=== PATIENT | male | born 1955 | race Caucasian/White ===

== ENCOUNTER 2021-08-17 05:48 | Observation (INO) | payer OTHER, SELFPAY ==
--- NOTE | ~2021-08-17 | US_ITS ---
EXAMINATION: US ABDOMEN LIMITED CLINICAL INFORMATION: Right upper quadrant pain. Elevated liver function tests.. COMPARISON: None TECHNIQUE: Real-time imaging of the right upper quadrant abdominal viscera. FINDINGS: PANCREAS: Normal. LIVER: Liver has normal size, contour and echotexture. No focal hepatic lesion or intrahepatic bile duct dilatation. GALLBLADDER: There is gallbladder hydrops. The gallbladder is distended to 6 cm transverse diameter. There appear to be calculi within the region of the gallbladder neck (image 30 of 59). No gallbladder wall thickening or pericholecystic fluid. The learning technologist reports that the patient had tenderness over the region of the gallbladder. COMMON BILE DUCT: CBD is not specifically visualized. No dilated ducts are seen. RIGHT KIDNEY: Normal. No hydronephrosis. No renal calculi or focal parenchymal lesions. The kidney measures 11.6 cm in maximum dimension. FREE FLUID: None. US/US abdomen limited IMPRESSION: Abnormal. Gallbladder hydrops is present, and there appear to be stones in the region of the gallbladder neck. No gallbladder wall edema or pericholecystic fluid. There is reportedly pain over the region of the gallbladder, and pain could be secondary to biliary colic or early onset cholecystitis.
--- NOTE | ~2021-08-17 | MR_ITS ---
EXAMINATION: MR ABDOMEN WITHOUT CONTRAST CLINICAL INFORMATION: Abdominal pain and elevated liver function tests COMPARISON: None. TECHNIQUE: MR abdomen is performed without gadolinium contrast. MRCP sequences were also performed. FINDINGS: LUNG BASES: The visualized lung bases are unremarkable. LIVER, GALLBLADDER, AND BILIARY TREE: The liver is normal in size, smooth in contour, and normal in signal. No intrahepatic or extrahepatic biliary ductal dilatation is present. The common bile duct measures 0.4 cm. No common bile duct stone is seen. The gallbladder is enlarged. There are gallstones in the neck of the gallbladder. There is gallbladder wall thickening and edema. There is a small amount of pericholecystic fluid. Appearance is concerning for acute cholecystitis. PANCREAS: Unremarkable. Main pancreatic duct is normal in caliber. SPLEEN: The spleen is slightly enlarged and measures 13.8 cm in length. ADRENAL GLANDS: Unremarkable. KIDNEYS AND URETERS: The kidneys are normal in size and shape. No hydronephrosis. There are bilateral renal peripelvic cysts. GASTROINTESTINAL TRACT: No bowel obstruction. No ascites or fluid collection. ABDOMINAL WALL: No significant hernia is appreciated. LYMPH NODES: No lymphadenopathy. VASCULAR: Unremarkable. OSSEOUS STRUCTURES: Marrow signal normal. There are degenerative changes of the spine. MR/MR abdomen wo con IMPRESSION: Enlarged gallbladder and gallstones in the neck of the gallbladder. Gallbladder wall is slightly thickened and edematous and there is trace pericholecystic fluid. Appearance is concerning for acute cholecystitis. Normal caliber intra and extrahepatic bile ducts. No common bile duct stone seen. Slightly enlarged spleen. Bilateral renal peripelvic cysts.
--- NOTE | ~2021-08-17 | US_ITS ---
EXAMINATION: US RETROPERITONEAL LIMITED (RENAL ONLY) CLINICAL INFORMATION: Follow-up lesion left kidney. COMPARISON: Previous limited abdominal ultrasound, abdominal and pelvic CT scan and abdominal MR with MRCP from earlier this month TECHNIQUE: Grayscale and color imaging of the left kidney FINDINGS: LEFT KIDNEY: 2.5 x 5.8 x 6.1 cm (SAG x AP x TRV). The kidney is normal in size, contour, and echogenicity. Renal cortical thickness is normal. There are 2 cortical cysts seen in the lower pole measuring 7 mm and 1.6 x 1.4 x 1 cm. There are peripelvic cysts. No renal mass or hydronephrosis is seen. US/US renal BI IMPRESSION: Left renal cortical and peripelvic cysts.
--- NOTE | ~2021-08-17 | CT_ITS ---
EXAMINATION: CT ABDOMEN AND PELVIS WITHOUT CONTRAST CLINICAL INFORMATION: Status post recent colonoscopy. Abdominal pain. COMPARISON: Ultrasound abdomen 08/17/2021 TECHNIQUE: Multidetector volumetric imaging was performed from the superior aspect of the liver through the pubic symphysis. Sagittal and coronal reformatted images were obtained on the technologist's workstation. This CT examination was performed using dose optimization techniques as appropriate, variously including the following: *Automated exposure control *Adjustment of mA and/or kV according to patient size (this includes techniques or standardized protocols for targeted exams where dose is matched to indication/reason for exam; i.e. extremities or head) *Use of iterative reconstruction technique DLP: 864 mGy-cm FINDINGS: LUNG BASES: There is bibasilar scarring or atelectasis. The heart size is normal. LIVER, GALLBLADDER, AND BILIARY TREE: The liver is normal in size, shape, and attenuation. No focal hepatic lesion or biliary ductal dilatation is present. The gallbladder is distended with multiple radiopaque calculi. There is no gallbladder wall thickening or pericholecystic fluid collection. PANCREAS: Unremarkable. SPLEEN: Unremarkable. ADRENAL GLANDS: Unremarkable. KIDNEYS AND URETERS: The kidneys are normal size and shape. There is mild prominent pelvicalyceal system but no obstructive process. There are several low-density lesions in the mid and lower pole left kidney measuring cyst on axial image 39 and 3 and coronal image 68/6. There is an exophytic isointense lesion in the lower pole measuring 5 mm image 68/6, not a simple cysts. There is no perinephric stranding. BLADDER: There is mild posterior bladder wall thickening. No radiopaque bladder calculi seen. GASTROINTESTINAL TRACT: There is scattered stool and gas seen throughout the colon without any significant distention. The small bowel loops are normal caliber. Appendix is normal caliber. The stomach is nondistended. There is no free air or free fluid. ABDOMINAL WALL: No significant hernia is appreciated. LYMPH NODES: Normal. VASCULAR: Unremarkable. PELVIC VISCERA: The prostate gland is moderately enlarged extending to the base of bladder OSSEOUS STRUCTURES: No lytic or sclerotic process seen. There is mild degenerative disc changes L5-S1 and L2-L3 disc levels with mild ventral spondylosis. There is a total right hip prosthesis with prosthetic artifact in the right lower hemipelvis. CT/CT abdomen pelvis wo con IMPRESSION: Cholelithiasis without wall thickening. No intrahepatic ductal dilatation. Moderate constipation. Bilateral prominent pelvicalyceal system but no obstructive etiology seen. There is no other hydroureter. There are left lower pole and mid pole renal cysts cysts. There is an exophytic small fibroid lesion lower pole left kidney which is indeterminate. Fleischner guidelines were followed.
[2021-08-17 05:52] VITALS: BP 116/76; PULSE 69; RESP 20; TEMP 36.2; O2SAT 97; BMI 31.4
[2021-08-17 06:14] LABS: MANUAL DIFF FLAG NO
[2021-08-17 06:19] LABS: Basophils Percent Auto 0.3 % (0-2); Eosinophils Absolute Auto 0.1 X10*3/uL (0.0-0.4); Eosinophils Percent Auto 0.9 % (0-4); Hematocrit 41.5 % (42.0-52.0); Hemoglobin 14.3 g/dl (14.0-18.0); Imm Gran Abs Auto 0.02 X10*3/uL (0.00-0.03); Imm Gran Pct Auto 0.3 % (0.0-0.4); Lymphocytes Absolute Auto 0.5 X10*3/uL (1.2-4.9); Lymphocytes Percent Auto 7.2 % (20-40); Mean Corpuscular HGB Conc 34.5 g/dl (31.0-36.0); Mean Corpuscular Hemoglobin 28.8 pg (27.0-33.0); Mean Corpuscular Volume 83.7 fL (80.0-98.0); Monocytes Absolute Auto 0.8 X10*3/uL (0.1-1.2); Monocytes Percent Auto 11.8 % (2-11); Neutrophils Absolute Auto 5.1 x10*3/uL (2.0-8.3); Neutrophils Percent Auto 79.5 % (45-73); Platelet Count 182 X10*3/uL (160-400); Red Blood Count 4.96 X10*6/uL (4.60-5.80); Red Cell Distribution Width 13.2 % (11.0-16.0); White Blood Count 6.4 X10*3/uL (4.8-10.8)
[2021-08-17 06:37] LABS: Alanine Aminotransferase 607 U/L (0-40); Albumin Level 4.3 g/dL (3.5-5.0); Alkaline Phosphatase 118 U/L (39-117); Anion Gap 14 (12-20); Aspartate Amino Transferase 658 U/L (5-37); Bilirubin Total 4.6 mg/dL (0.0-1.0); Blood Urea Nitrogen 14 mg/dL (9-16); Calcium 9.2 mg/dL (8.4-10.2); Carbon Dioxide 23 mmol/L (22-29); Chloride 106 mmol/L (96-108); Creatinine Clr Calc Pharmacy 117.2; Estimated Glomerular Filt Rate > 60; Glucose Random 126 mg/dL (60-115); Lipase 224 U/L (8-78); Potassium 3.8 mmol/L (3.3-5.1); Sodium 139 mmol/L (135-145)
--- NOTE | 2021-08-17 09:37 | ED.ABDPAIN ---
HPI - Abdominal Pain General Chief Complaint: Abdominal Pain Stated Complaint: Abd pain Time Seen by Provider: 08/17/21 09:21 Source: patient Mode of arrival: ambulatory Limitations: no limitations History of Present Illness HPI narrative: 66 y/o male with history of HTN, sarcoidosis involving the lungs, hypothyroidism, hx colonic polyps s/p recent colonoscopy on 08/07 who presents to the ER from home with epigastric and RUQ pain that started 2 days ago. Patient reports 2 days ago after eating a hamburger he had sudden onset of central and upper abdominal pain that subsided with time. He reports after he ate a breakfast sandwich yesterday morning he again developed sharp pain in his upper abdomen that and is now more located in his right upper quadrant and right flank. He has no associated nausea, vomiting, diarrhea. He reports the pain has been constant since yesterday after he ate. After the colonoscopy on the he had no abdominal pain the following week and pain did not start until 9 days later. He has been constipated and finally had a normal BM after taking milk of mag yesterday. He reports when he used to get CT scans of his chest for his sarcoidosis he was told he had gallstones but has never had any issues with them in the past. MD elicited complaint: abdominal pain Onset (ago): day(s) (3) Pain Consistency: constant Location: RUQ Severity: moderate Pain scale (0-10): 6 Quality: stabbing Radiation: epigastric Exacerbating factors: eating Relieving factors: nothing Context: recent surgery/procedure (colonoscopy 08/07) Associated symptoms: constipation Related Data Allergies Allergy/AdvReac Type Severity Reaction Status Date / Time No Known Allergies Allergy Unverified 08/17/21 05:59 Review of Systems Review of Systems Constitutional: No Fever, No Chills ENT/Mouth: No sore throat, No Rhinorrhea, No Swallowing Difficulty Cardiovascular: No Chest Pain, No SOB, No Orthopnea, No Edema Respiratory: No Cough, No Sputum, No Wheezing, No dyspnea Gastrointestinal: No Nausea, No Vomiting, No Diarrhea, + abdominal Pain, No Hematochezia, No Melena Genitourinary: No Dysuria, No Urinary Frequency, No Hematuria Musculoskeletal: No joint pain, No Myalgias Skin: No Skin Lesions, No rash Neuro: No Weakness, No Numbness, No Dizziness, No Headache Psych: No Anxiety/Panic, No Depression Heme/Lymph: No Bruising, No Lymphadenopathy Endocrine: No Polyuria, No Polydipsia Physical Exam Vital Signs: Vital Signs: Last Vital Signs Temp 97.2 F 08/17/21 05:52 Pulse 58 08/17/21 10:32 Resp 16 08/17/21 10:32 BP 136/71 08/17/21 10:32 Pulse Ox 99 08/17/21 10:32 BMI result Body Mass Index 31.4 Appearance: Alert. Oriented X3. No acute distress. Eyes: Pupils equal, round and reactive to light. ENT: Pharynx normal. Neck: Normal inspection. Neck supple. CVS: Normal heart rate and rhythm. Pulses normal. Respiratory: No respiratory distress. Breath sounds normal. Abdomen: Soft with mild RUQ tenderness, no rebound or guarding. decreased +BS x4 Skin: Skin warm and dry. Normal skin color. Normal skin turgor. No rashes. Extremities: No lower extremity edema. Neuro: Oriented X 3. No motor deficit. No sensory deficit. Course Course Course Narrative: 66-year-old male presenting with right upper quadrant pain after eating for the last 2 or 3 days. He has no nausea, vomiting, diarrhea. He did have a recent colonoscopy on August 07 but did not have any abdominal pain immediately after the procedure. There still is a concern and a slight possibility that he has had perforation. Will proceed with CT scan for evaluation as well as right upper quadrant ultrasound with concern for gallstones. Reevaluation(s) Reevaluation #1: LFTs significantly elevated with a bilirubin of 4.6 and AST/ALT in the 600s. His alk-phos is also slightly elevated and lipase in the 240 range. RUQ U/S showing gallbladder hydrops without thickening or pericholecystic fluid. Unable to see the common bile duct. Pain is controlled without medication at this time, but has not eaten anything since yesterday 2pm. CT scan pending. Reevaluation #2: CT scan showing cholelithiasis without gallbladder wall thickening. CBD again not mentioned. Pancreas is normal in appearance. Case was discussed with Dr. Zapata who is concerned about a possible CBD stone. Recommending MRCP for further evaluation. Recommending GI consult and admission to the medicine service. Case discussed with hospitalist who will admit patient further management. MDM - Abdominal Pain Lab Data Result diagrams: 08/17/21 06:01 08/17/21 06:01 Labs: Lab Results 08/17/21 08/17/21 08/17/21 Range/Units 06:01 06:01 10:28 WBC 6.4 (4.8-10.8) X10*3/uL RBC 4.96 (4.60-5.80) X10*6/uL Hgb 14.3 (14.0-18.0) g/dl Hct 41.5 L (42.0-52.0) % MCV 83.7 (80.0-98.0) fL MCH 28.8 (27.0-33.0) pg MCHC 34.5 (31.0-36.0) g/dl RDW 13.2 (11.0-16.0) % Plt Count 182 (160-400) X10*3/uL MPV 10.0 (9.4-12.4) fL Immature Gran % (Auto) 0.3 (0.0-0.4) % Neut % (Auto) 79.5 H (45-73) % Lymph % (Auto) 7.2 L (20-40) % [place] % (Auto) 11.8 H (2-11) % Eos % (Auto) 0.9 (0-4) % Baso % (Auto) 0.3 (0-2) % Lymph # (Auto) 0.5 L (1.2-4.9) X10*3/uL [place] # (Auto) 0.8 (0.1-1.2) X10*3/uL Eos # (Auto) 0.1 (0.0-0.4) X10*3/uL Baso # (Auto) 0.0 (0.0-0.2) X10*3/uL Abs Immat Gran (auto) 0.02 (0.00-0.03) X10*3/uL Absolute Neuts (auto) 5.1 (2.0-8.3) x10*3/uL Absolute Nucleated RBC 0.000 (0.0-0.012) X10*3/uL Nucleated RBC % (auto) 0.0 (0.0-0.2) /100WBC Sodium 139 (135-145) mmol/L Potassium 3.8 (3.3-5.1) mmol/L Chloride 106 (96-108) mmol/L Carbon Dioxide 23 (22-29) mmol/L Anion Gap 14 (12-20) BUN 14 (9-16) mg/dL Creatinine 0.82 (0.5-1.4) mg/dL Estim Creat Clear Calc 117.2 Estimated GFR > 60 Random Glucose 126 H (60-115) mg/dL Lactic Acid 0.7 (0.5-2.0) mmol/L Calcium 9.2 (8.4-10.2) mg/dL Total Bilirubin 4.6 H (0.0-1.0) mg/dL AST 658 H (5-37) U/L ALT 607 H (0-40) U/L Alkaline Phosphatase 118 H (39-117) U/L Total Protein 7.0 (6.5-8.0) g/dL Albumin 4.3 (3.5-5.0) g/dL Lipase 224 H (8-78) U/L Urine Color Urine Appearance Urine pH (5.0-8.0) Ur Specific [place] (1.005-1.025) Urine Protein (NEG-TRACE) MG/DL Urine Glucose (UA) (NEG) MG/DL Urine Ketones (NEG) MG/DL Urine Blood (NEG) Urine Nitrite (NEG) Ur Leukocyte Esterase (NEG) 08/17/21 Range/Units 10:28 WBC (4.8-10.8) X10*3/uL RBC (4.60-5.80) X10*6/uL Hgb (14.0-18.0) g/dl Hct (42.0-52.0) % MCV (80.0-98.0) fL MCH (27.0-33.0) pg MCHC (31.0-36.0) g/dl RDW (11.0-16.0) % Plt Count (160-400) X10*3/uL MPV (9.4-12.4) fL Immature Gran % (Auto) (0.0-0.4) % Neut % (Auto) (45-73) % Lymph % (Auto) (20-40) % [place] % (Auto) (2-11) % Eos % (Auto) (0-4) % Baso % (Auto) (0-2) % Lymph # (Auto) (1.2-4.9) X10*3/uL [place] # (Auto) (0.1-1.2) X10*3/uL Eos # (Auto) (0.0-0.4) X10*3/uL Baso # (Auto) (0.0-0.2) X10*3/uL Abs Immat Gran (auto) (0.00-0.03) X10*3/uL Absolute Neuts (auto) (2.0-8.3) x10*3/uL Absolute Nucleated RBC (0.0-0.012) X10*3/uL Nucleated RBC % (auto) (0.0-0.2) /100WBC Sodium (135-145) mmol/L Potassium (3.3-5.1) mmol/L Chloride (96-108) mmol/L Carbon Dioxide (22-29) mmol/L Anion Gap (12-20) BUN (9-16) mg/dL Creatinine (0.5-1.4) mg/dL Estim Creat Clear Calc Estimated GFR Random Glucose (60-115) mg/dL Lactic Acid (0.5-2.0) mmol/L Calcium (8.4-10.2) mg/dL Total Bilirubin (0.0-1.0) mg/dL AST (5-37) U/L ALT (0-40) U/L Alkaline Phosphatase (39-117) U/L Total Protein (6.5-8.0) g/dL Albumin (3.5-5.0) g/dL Lipase (8-78) U/L Urine Color YELLOW Urine Appearance CLEAR Urine pH 6.0 (5.0-8.0) Ur Specific [place] 1.015 (1.005-1.025) Urine Protein NEG (NEG-TRACE) MG/DL Urine Glucose (UA) 100 H (NEG) MG/DL Urine Ketones NEG (NEG) MG/DL Urine Blood NEG (NEG) Urine Nitrite NEG (NEG) Ur Leukocyte Esterase NEG (NEG) Discharge Plan Discharge Clinical Impression: Gallbladder hydrops, Abdominal pain Patient Disposition: Admitted As Inpatient [facility] Past Medical History Medical History (Updated 08/17/21 @ 13:14 by DEYSI Castorena) Colon polyp Hypertension Sarcoidosis Surgical History (Updated 08/17/21 @ 05:57 by Radha Rm) History of hip replacement Social History Social History Use of substances other than those prescribed or required for medical reasons: No Advance Directives: Yes Advance Directives Information Provided: Yes Advance Directives on File: No
[2021-08-17 10:32] VITALS: BP 136/71; PULSE 58; RESP 16; O2SAT 99
[2021-08-17] MEDS: 0.9 % Sodium Chloride 1,000 ML 999 ML IVCONT (10:32)
[2021-08-17 10:34] LABS: Appearance Urine CLEAR; Color Urine YELLOW; Glucose Urine UA 100 MG/DL (NEG); Leukocyte Esterase Urine NEG (NEG); Nitrite Urine NEG (NEG); Specific Gravity - Urine 1.015 (1.005-1.025); Urine Blood NEG (NEG); Urine Ketones NEG (NEG); Urine Protein NEG (NEG-TRACE)
[2021-08-17 10:43] LABS: Lactic Acid 0.7 mmol/L (0.5-2.0)
[2021-08-17 14:13] LABS: COVID-19 Test Negative (Negative); IDNOW Serial# 9DD0AD1C
--- NOTE | 2021-08-17 14:22 | PHA.MEDREC ---
Pharmacy Consult ? Medication Reconciliation Pharmacy has completed the medication reconciliation.
[2021-08-17 14:27] VITALS: BP 139/79; PULSE 53; RESP 16; TEMP 36.6; O2SAT 97
--- NOTE | 2021-08-17 15:17 | PM.IMHP ---
History of Present Illness Date of Service: 08/17/21 Chief Complaint: abdominal pain, elevated LFTs 66 y/o M HTN, sarcoidosis involving the lungs, hypothyroidism, hx colonic polyps s/p recent colonoscopy- came to the hospital sec to abd pain- patient had epigastric and pain below the right upper quadrant area- for 2 days. Pain he describes sudden ,sharp- started after he started breakfast sandwich and subsequently pain was located in mostly below right upper quadrant and flank area- pain is not associated with nausea vomiting or diarrhea. Denies any fever or chills, says has constipation. He said it was constant ache- now seems to be pain gómez improving but still has mild pain below the right upper quadrant area. After colonoscopy he did not had any pain for a week or so. Last BM was yesterday. denies any history of alcohol use or salicylate use , Lab imaging and reviewed: wbc: 6.4 hct: 14.3/41 platlets:182 lactic acid: normal elevated lft's - AST and ALT elevated as well as bili, alkaline phosphatase is borderline elevated. blood culture pending CT scans of his chest for his sarcoidosis he was told he had gallstones but has never had any issues with them in the past. abd us:IMPRESSION: Abnormal.? Gallbladder hydrops is present, and there appear to be stones in the region of the gallbladder neck. No gallbladder wall edema or pericholecystic fluid. There is reportedly pain over the region of the gallbladder, and pain could be secondary to biliary colic or early onset cholecystitis. Review of Systems Review of Systems: as above. Yes all other systems are reviewed and are negative [facility] Medical History (Updated 08/18/21 @ 13:56 by Elizabeth Niño MD) Colon polyp Gallstone Hypertension Sarcoidosis Pertinent family history: sister -htn Surgical History History of hip replacement Social History Household Members: Spouse Housing: House Do you presently have visiting nurse or other home services: No Patient Tobacco Use Status: Never used Tobacco Use of substances other than those prescribed or required for medical reasons: No Have you been hit, kicked, punched, or otherwise hurt by someone within the past year? If so, by whom?: No Do you feel safe in your current relationship?: No Is there a partner from a previous relationship who is making you feel unsafe now?: No Are you made to feel afraid or neglected: No Advance Directives: No Advance Directives Information Provided: No Advance Directives on File: No Do you have thoughts of harming others: None Do you have a plan to hurt others: No Plan Recently lost weight without trying: No Nutrition Risks: No Nutritional Risk Meds Allergies Allergy/AdvReac Type Severity Reaction Status Date / Time No Known Allergies Allergy Unverified 08/17/21 05:59 Active Medications: Current Medications Amlodipine Besylate (Amlodipine Besylate 5 Mg Tablet) 5 mg PO DAILY [facility]; Protocol Enoxaparin Sodium (Enoxaparin Sodium 40 Mg/0.4 Ml Syringe) 40 mg SUBCUT DAILY [facility] Levothyroxine Sodium (Levothyroxine Sodium 50 Mcg Tablet) 50 mcg PO DAILY [facility] Pharmacy Consult (Consult Rx Perform Med Rec) 1 each MISCELLANE ONCE PRN PRN Reason: Consult order Sodium Chloride (0.9 % Sodium Chloride Flush 3 Ml Syringe) 3 ml IVFLUSH QSHIFT [facility] Tamsulosin HCl (Tamsulosin Hcl 0.4 Mg Capsule) 0.4 mg PO DAILY [facility] Home Medications Medication Instructions Recorded Confirmed Last Taken Type amlodipine 5 mg tablet 1 tab PO DAILY 08/17/21 08/17/21 08/16/21 History celecoxib 200 mg capsule 1 cap PO DAILY PRN 08/17/21 08/17/21 Unknown History levothyroxine 50 mcg tablet 1 tab PO DAILY 08/17/21 08/17/21 08/16/21 History tamsulosin 0.4 mg capsule 1 cap PO DAILY 08/17/21 08/17/21 08/16/21 History Physical Exam Vital Signs and Narrative: Vital Signs: Last Vital Signs Temp 97.9 F 08/17/21 14:27 Pulse 53 08/17/21 14:27 Resp 16 08/17/21 14:27 BP 139/79 08/17/21 14:27 Pulse Ox 97 08/17/21 14:27 BMI result Body Mass Index 31.4 Appearance: Alert.? Oriented X3.? No acute distress.? Eyes: Pupils equal, round and reactive to light.icteric present mild ENT: Pharynx normal. cvs: rrr, [id number] , no murmur Lungs: No respiratory distress.? Breath sounds normal. Abdomen: Soft ,with mild tenderness below ruq, no rebound or guarding, +BS x4 Skin: Skin warm and dry.? Normal skin color.? Normal skin turgor. No rashes. Extremities: No lower extremity edema. Neuro: Oriented X 3.? No motor deficit.? No sensory deficit. Results Labs CBC and Chem 7: 08/18/21 06:46 08/18/21 06:46 Labs: Laboratory Results - last 24 hr 08/17/21 08/17/21 08/17/21 06:01 06:01 10:28 MCV 83.7 MCH 28.8 MCHC 34.5 RDW 13.2 Plt Count 182 MPV 10.0 Immature Gran % (Auto) 0.3 Neut % (Auto) 79.5 H Lymph % (Auto) 7.2 L [place] % (Auto) 11.8 H Eos % (Auto) 0.9 Baso % (Auto) 0.3 Lymph # (Auto) 0.5 L [place] # (Auto) 0.8 Eos # (Auto) 0.1 Baso # (Auto) 0.0 Abs Immat Gran (auto) 0.02 Absolute Neuts (auto) 5.1 Absolute Nucleated RBC 0.000 Nucleated RBC % (auto) 0.0 Anion Gap 14 Estim Creat Clear Calc 117.2 Estimated GFR > 60 Random Glucose 126 H Lactic Acid 0.7 Calcium 9.2 Total Bilirubin 4.6 H AST 658 H ALT 607 H Alkaline Phosphatase 118 H Total Protein 7.0 Albumin 4.3 Lipase 224 H Urine Color Urine Appearance Urine pH Ur Specific Burns Urine Protein Urine Glucose (UA) Urine Ketones Urine Blood Urine Nitrite Ur Leukocyte Esterase COVID-19 (MICHELE) COVID-19 Clin Com 08/17/21 08/17/21 10:28 13:54 MCV MCH MCHC RDW Plt Count MPV Immature Gran % (Auto) Neut % (Auto) Lymph % (Auto) [place] % (Auto) Eos % (Auto) Baso % (Auto) Lymph # (Auto) [place]do # (Auto) Eos # (Auto) Baso # (Auto) Abs Immat Gran (auto) Absolute Neuts (auto) Absolute Nucleated RBC Nucleated RBC % (auto) Anion Gap Estim Creat Clear Calc Estimated GFR Random Glucose Lactic Acid Calcium Total Bilirubin AST ALT Alkaline Phosphatase Total Protein Albumin Lipase Urine Color YELLOW Urine Appearance CLEAR Urine pH 6.0 Ur Specific Burns 1.015 Urine Protein NEG Urine Glucose (UA) 100 H Urine Ketones NEG Urine Blood NEG Urine Nitrite NEG Ur Leukocyte Esterase NEG COVID-19 (MICHELE) Negative COVID-19 Clin Com See Note Imaging Radiologist's Impressions: Impressions Abdomen Ultrasound 08/17/21 09:57 IMPRESSION: Abnormal. Gallbladder hydrops is present, and there appear to be stones in the region of the gallbladder neck. No gallbladder wall edema or pericholecystic fluid. There is reportedly pain over the region of the gallbladder, and pain could be secondary to biliary colic or early onset cholecystitis. Abdomen/Pelvis CT 08/17/21 10:55 IMPRESSION: Cholelithiasis without wall thickening. No intrahepatic ductal dilatation. Moderate constipation. Bilateral prominent pelvicalyceal system but no obstructive etiology seen. There is no other hydroureter. There are left lower pole and mid pole renal cysts cysts. There is an exophytic small fibroid lesion lower pole left kidney which is indeterminate. Fleischner guidelines were followed. Assessment and Plan (1) Abdominal pain: Qualifiers: Abdominal location: right lower quadrant Qualified Code(s): R10.31 - Right lower quadrant pain Status: Acute (2) Elevated LFTs: Status: Acute 66-year-old male presenting with right upper quadrant pain?and elevated lft's: 1. Abd pain /elevated lft's: Bilirubin elevated, elevated AST ,ALT , alk phos boderline hepatitis profile [facility] GI and surgery eval 2..HTN: CONTINUE AMLODIPINE 3. Hypothyroidism : continue levothyroxine 4. dvt prophylax: s/c lovenox. Quality Stroke Does the patient have a stroke diagnosis?: No VTE Prior VTE?: No VTE Risk Level:: Medical - moderate - high VTE Device Contraindication: N/A - Device Ordered VTE Drug Contraindication: N/A - Med Ordered
[2021-08-17] MEDS: amLODIPine Besylate 5 MG TABLET PO (16:21)
[2021-08-17] MEDS: Levothyroxine Sodium 50 MCG TABLET PO (16:21)
[2021-08-17] MEDS: Tamsulosin HCL 0.4 MG CAPSULE PO (16:21)
[2021-08-17 16:29] LABS: Acetaminophen LAB < 1 mcg/mL (<30); Salicylate < 5.0 mg/dL (15-30)
[2021-08-17 16:30] VITALS: BP 130/75; PULSE 61; RESP 16; O2SAT 98
[2021-08-17] MEDS: 0.9 % Sodium Chloride Flush 3 ML SYRINGE IVFLUSH (16:32)
[2021-08-17] MEDS: Lactated Ringers 1,000 ML 80 ML IVCONT (17:33)
[2021-08-17 20:00] VITALS: BP 136/77; PULSE 66; RESP 16; O2SAT 98
[2021-08-17] MEDS: Enoxaparin Sodium 40 MG/0.4 ML SYRINGE SUBCUT (20:17)
[2021-08-17] MEDS: Acetaminophen 325 MG TABLET 650 MG PO (23:16)
[2021-08-18] VITALS (7 sets, daily range): BP systolic 121–138; BP diastolic 67–82; PULSE 53–68; RESP 12–18; TEMP 36.5–37.1; O2SAT 95–99
[2021-08-18 03:49] LABS: HBS Num1 2.56 mIU/mL (0-7.99); HBc Num1 0.14 S/CO (0.00-0.79); HBsAGNum1 0.21 S/CO (0.00-0.99); Hepatitis B Core Antibody Nonreactive (Nonreactive); Hepatitis B Surface Antigen Negative (Negative); ~Hepatitis B Surface Antibody NONREACTIVE (Nonreactive)
[2021-08-18 03:56] LABS: ~HepC Num1 0.19 S/CO (0.00-0.79); ~Hepatitis C Antibody Nonreactive (Nonreactive)
[2021-08-18] MEDS: Levothyroxine Sodium 50 MCG TABLET PO (06:10)
[2021-08-18] MEDS: Lactated Ringers 1,000 ML 80 ML IVCONT ×2 (06:10→17:59)
[2021-08-18 07:42] LABS: INTERNATIONAL NORM RATIO 1.1 (0.9-1.1); Prothrombin Time 12.9 SEC (9.9-13.0)
--- NOTE | 2021-08-18 07:58 | PM.CNGS ---
History of Present Illness Consult details Consult date: 08/18/21 Narrative: 66-year-old male referred for a stones. He was admitted to the hospital yesterday because of abdominal pain. He said this started about 3 days ago after dinner. He describes is mostly on the entire upper abdomen. He said that this had improved the following day but he continued to have recurrent pain throughout the weekend. He says that the pain seemed to have migrated to the right side of his abdomen more towards the flank. He denied any nausea or vomiting. In view of his pain, he came to the emergency room yesterday. He currently says the pain has subsided significantly. He describes this as very minimal at this time. He also says that he is hungry and wants to eat. Review of Systems Constitutional: Constitutional: Denies chills and Denies fever(s) Cardiovascular: Cardiovascular: Denies chest pain, Denies dyspnea and Denies dyspnea on exertion Respiratory: Respiratory: Denies cough, Denies dyspnea and Denies dyspnea on exertion Gastrointestinal: Gastrointestinal: Denies hematochezia and Denies change in bowel habits Genitourinary: Genitourinary: Denies hematuria and Denies difficulty urinating Musculoskeletal: Musculoskeletal: Denies back pain and Denies limited range of motion Neurologic: Denies focal weakness and Denies convulsions Psychiatric: Psychiatric: Denies depression and Denies mood swings PMFSH Past Medical History Medical History Colon polyp Gallstone Hypertension Sarcoidosis Surgical History Surgical History History of hip replacement Social History Social History Household Members: Spouse Housing: House Do you presently have visiting nurse or other home services: No Patient Tobacco Use Status: Never used Tobacco Second Hand Smoke Exposure: No Use of substances other than those prescribed or required for medical reasons: No Currently Displaying Signs/Symptoms of Drug Intoxication Withdrawal: No Have you been hit, kicked, punched, or otherwise hurt by someone within the past year? If so, by whom?: No Do you feel safe in your current relationship?: No Is there a partner from a previous relationship who is making you feel unsafe now?: No Are you made to feel afraid or neglected: No Are you DNR?: No Advance Directives: No Advance Directives Information Provided: No Advance Directives on File: No Do you have thoughts of harming others: None Do you have a plan to hurt others: No Plan Recently lost weight without trying: No Nutrition Risks: No Nutritional Risk service: No Current occupational status: retired Meds Allergies Allergy/AdvReac Type Severity Reaction Status Date / Time No Known Allergies Allergy Unverified 08/17/21 05:59 Active Medications: Current Medications Acetaminophen (Acetaminophen 325 Mg Tablet) 650 mg PO Q8H PRN PRN Reason: Pain, Mild (Pain Scale 1-3) Last Admin: 08/17/21 23:16 Dose: 650 mg Documented by: Amlodipine Besylate (Amlodipine Besylate 5 Mg Tablet) 5 mg PO DAILY [facility]; Protocol Last Admin: 08/17/21 16:21 Dose: 5 mg Documented by: Enoxaparin Sodium (Enoxaparin Sodium 40 Mg/0.4 Ml Syringe) 40 mg SUBCUT Q24H [facility] Last Admin: 08/17/21 20:17 Dose: 40 mg Documented by: Lactated Ringer's (Lr) 1,000 mls @ 80 mls/hr IVCONT .[id number] [facility] Last Admin: 08/18/21 06:10 Dose: 80 mls/hr Documented by: Levothyroxine Sodium (Levothyroxine Sodium 50 Mcg Tablet) 50 mcg PO DAILY@0600 [facility] Last Admin: 08/18/21 06:10 Dose: 50 mcg Documented by: Pharmacy Consult (Consult Rx Perform Med Rec) 1 each MISCELLANE ONCE PRN PRN Reason: Consult order Sodium Chloride (0.9 % Sodium Chloride Flush 3 Ml Syringe) 3 ml IVFLUSH QSHIFT [facility] Last Admin: 08/18/21 00:10 Dose: Not Given Documented by: Tamsulosin HCl (Tamsulosin Hcl 0.4 Mg Capsule) 0.4 mg PO DAILY@1730 [facility] Last Admin: 08/17/21 16:21 Dose: 0.4 mg Documented by: Home Medications Medication Instructions Recorded Confirmed Last Taken Type amlodipine 5 mg tablet 1 tab PO DAILY 08/17/21 08/17/21 08/16/21 History celecoxib 200 mg capsule 1 cap PO DAILY PRN 08/17/21 08/17/21 Unknown History levothyroxine 50 mcg tablet 1 tab PO DAILY 08/17/21 08/17/21 08/16/21 History tamsulosin 0.4 mg capsule 1 cap PO DAILY 08/17/21 08/17/21 08/16/21 History Physical Exam Vital Signs: Vital Signs: Last Vital Signs Temp 97.9 F 08/17/21 14:27 Pulse 63 08/18/21 06:14 Resp 16 08/18/21 06:14 BP 121/72 08/18/21 06:14 Pulse Ox 99 08/18/21 06:14 BMI result Body Mass Index 31.4 Const: General: comfortable and no acute distress Orientation/consciousness: patient oriented x3 Neck: Neck: Yes no lymphadenopathy Resp: Auscultation: clear to auscultation bilaterally Cardio: Rhythm: regular rhythm GI: Palpation (GI): Soft to palpation, nontender and no guarding Neuro: General: patient oriented x3 Results Labs Result diagrams: 08/18/21 06:46 08/19/21 04:54 Labs: Abnormal lab results 08/17/21 08/17/21 Range/Units 10:28 16:10 Urine Glucose (UA) 100 H (NEG) MG/DL Salicylates < 5.0 L (15-30) mg/dL Urine 08/17/21 Range/Units 10:28 Urine Color YELLOW Urine Appearance CLEAR Urine pH 6.0 (5.0-8.0) Ur Specific [place] 1.015 (1.005-1.025) Urine Protein NEG (NEG-TRACE) MG/DL Urine Glucose (UA) 100 H (NEG) MG/DL All other labs normal. Total Bili 4.6 H 0.0-1.0 mg/dL AST (GOT) 658 H 5-37 U/L ALT (GPT) 607 H 0-40 U/L Protein, Total 7.0 6.5-8.0 g/dL Alb 4.3 3.5-5.0 g/dL Alk Phos 118 H 39-117 U/L Lipase 224 H 8-78 U/L Imaging Abdomen CT scan report/results: report reviewed and image reviewed CT scan - pelvis: report reviewed and image reviewed Assessment and Plan (1) Gallstone: Status: Acute He was admitted for abdominal pain, mostly on the right side although this is much improved this morning. His CAT scan shows gallstones with a distended gallbladder without any other evidence of cholecystitis. The gallbladder wall is not thickened and there are no inflammatory changes surrounding this. His bilirubin is markedly elevated. His AST and ALT are also elevated. His CAT scan does not suggest any stone in the common bile duct but he is scheduled to have an MRCP today to rule this out. It is likely that he passed a stone causing this elevation of LFTs along with his pain over the weekend. I will review the MRI findings with him and discuss with him is options including possible cystectomy. He otherwise has have very benign exam. His white count is normal. He does not have any fever. He appears comfortable and has very minimal pain. Procedures Date of Service Date of Service: 08/18/21
[2021-08-18 08:08] LABS: Anion Gap 14 (12-20); Blood Urea Nitrogen 11 mg/dL (9-16); Calcium 8.8 mg/dL (8.4-10.2); Carbon Dioxide 24 mmol/L (22-29); Chloride 107 mmol/L (96-108); Creatinine Clr Calc Pharmacy 128.2; Estimated Glomerular Filt Rate > 60; Glucose Random 75 mg/dL (60-115); Sodium 141 mmol/L (135-145)
[2021-08-18 08:17] LABS: Hematocrit 46.3 % (42.0-52.0); Mean Corpuscular HGB Conc 32.4 g/dl (31.0-36.0); Mean Corpuscular Hemoglobin 27.9 pg (27.0-33.0); Mean Corpuscular Volume 86.2 fL (80.0-98.0); Mean Platelet Volume 10.1 fL (9.4-12.4); Platelet Count 151 X10*3/uL (160-400); Red Blood Count 5.37 X10*6/uL (4.60-5.80); Red Cell Distribution Width 13.2 % (11.0-16.0); White Blood Count 5.3 X10*3/uL (4.8-10.8)
[2021-08-18] MEDS: 0.9 % Sodium Chloride Flush 3 ML SYRINGE IVFLUSH ×2 (08:23→19:23)
[2021-08-18] MEDS: amLODIPine Besylate 5 MG TABLET PO (08:23)
--- NOTE | 2021-08-18 08:25 | PC.NURSE ---
pt alert and oriented, skin pwd, respirations even and unlabored, pt denies pain and nausea pt awaiting mri test
--- NOTE | 2021-08-18 08:40 | P.PNIM_ITS ---
Subjective Subjective Date of Service: 08/18/21 Interval History: abd /lft's Review of Systems still has abd pain Physical Exam Vital Signs: Vital Signs: Last Vital Signs Temp 97.9 F 08/17/21 14:27 Pulse 63 08/18/21 08:23 Resp 16 08/18/21 06:14 BP 136/80 08/18/21 08:23 Pulse Ox 99 08/18/21 06:14 BMI result Body Mass Index 31.4 ? Appearance: Alert.? Oriented X3.? No acute distress.? Eyes: Pupils equal, round and reactive to light.icteric present mild ENT: Pharynx normal. cvs: rrr, [id number] , no murmur Lungs: No respiratory distress.? Breath sounds normal. Abdomen: Soft ,with mild tenderness below ruq still present , no rebound or guarding, +BS x4 Skin: Skin warm and dry.? Normal skin color.? Normal skin turgor. No rashes. Extremities: No lower extremity edema. Neuro: Oriented X 3.? No motor deficit.? No sensory deficit. Objective Data Active Medications Acetaminophen (Acetaminophen 325 Mg Tablet) 650 mg PO Q8H PRN PRN Reason: Pain, Mild (Pain Scale 1-3) Last Admin: 08/17/21 23:16 Dose: 650 mg Documented by: TREVOR Amlodipine Besylate (Amlodipine Besylate 5 Mg Tablet) 5 mg PO DAILY [facility]; Protocol Last Admin: 08/18/21 08:23 Dose: 5 mg Documented by: MATHEUS Enoxaparin Sodium (Enoxaparin Sodium 40 Mg/0.4 Ml Syringe) 40 mg SUBCUT Q24H [facility] Last Admin: 08/17/21 20:17 Dose: 40 mg Documented by: TREVOR Lactated Ringer's (Lr) 1,000 mls @ 80 mls/hr IVCONT .[id number] [facility] Last Admin: 08/18/21 06:10 Dose: 80 mls/hr Documented by: TREVOR Levothyroxine Sodium (Levothyroxine Sodium 50 Mcg Tablet) 50 mcg PO DAILY@0600 [facility] Last Admin: 08/18/21 06:10 Dose: 50 mcg Documented by: TREVOR Pharmacy Consult (Consult Rx Perform Med Rec) 1 each MISCELLANE ONCE PRN PRN Reason: Consult order Sodium Chloride (0.9 % Sodium Chloride Flush 3 Ml Syringe) 3 ml IVFLUSH QSHIFT [facility] Last Admin: 08/18/21 08:23 Dose: 3 ml Documented by: MATHEUS Tamsulosin HCl (Tamsulosin Hcl 0.4 Mg Capsule) 0.4 mg PO DAILY@1730 [facility] Last Admin: 08/17/21 16:21 Dose: 0.4 mg Documented by: LUIS Labs CBC & Chem 7: 08/18/21 06:46 08/18/21 06:46 Labs: Laboratory Results - last 24 hr 08/17/21 08/17/21 08/17/21 10:28 10:28 13:54 MCV MCH MCHC RDW Plt Count MPV Absolute Nucleated RBC Nucleated RBC % (auto) PT INR Anion Gap Estim Creat Clear Calc Estimated GFR Random Glucose Lactic Acid 0.7 Calcium Urine Color YELLOW Urine Appearance CLEAR Urine pH 6.0 Ur Specific [place] 1.015 Urine Protein NEG Urine Glucose (UA) 100 H Urine Ketones NEG Urine Blood NEG Urine Nitrite NEG Ur Leukocyte Esterase NEG Salicylates Acetaminophen COVID-19 ([facility]LE) COVID-19 Clin Com Hep Bs Antigen Negative Hep Bs Antibody NONREACTIVE Hep B Core Total Ab Nonreactive Hepatitis C Ab (EIA) Nonreactive 08/17/21 08/17/21 08/18/21 13:54 16:10 06:46 MCV 86.2 MCH 27.9 MCHC 32.4 RDW 13.2 Plt Count 151 L MPV 10.1 Absolute Nucleated RBC 0.000 Nucleated RBC % (auto) 0.0 PT INR Anion Gap Estim Creat Clear Calc Estimated GFR Random Glucose Lactic Acid Calcium Urine Color Urine Appearance Urine pH Ur Specific [place] Urine Protein Urine Glucose (UA) Urine Ketones Urine Blood Urine Nitrite Ur Leukocyte Esterase Salicylates < 5.0 L Acetaminophen < 1 COVID-19 (MICHELE) Negative COVID-19 Clin Com See Note Hep Bs Antigen Hep Bs Antibody Hep B Core Total Ab Hepatitis C Ab (EIA) 08/18/21 08/18/21 06:46 06:46 MCV MCH MCHC RDW Plt Count MPV Absolute Nucleated RBC Nucleated RBC % (auto) PT 12.9 INR 1.1 Anion Gap 14 Estim Creat Clear Calc 128.2 Estimated GFR > 60 Random Glucose 75 D Lactic Acid Calcium 8.8 Urine Color Urine Appearance Urine pH Ur Specific [place] Urine Protein Urine Glucose (UA) Urine Ketones Urine Blood Urine Nitrite Ur Leukocyte Esterase Salicylates Acetaminophen COVID-19 (MICHELE) COVID-19 Clin Com Hep Bs Antigen Hep Bs Antibody Hep B Core Total Ab Hepatitis C Ab (EIA) Assessment and Plan (1) Abdominal pain: Status: Acute Assessment and Plan: 66-year-old male presenting with right upper quadrant pain?and elevated lft's: 1. Abd pain /elevated lft's: did not use any tylenol at home salicylate and tylenol levels seems normal ? Bilirubin elevated, elevated AST ,ALT , alk phos boderline improving ct abd : cholelitasis hepatitis profile ABC pending mrcp GI and surgery eval 2..HTN: CONTINUE AMLODIPINE 3. Hypothyroidism : continue levothyroxine 4. Ct abdomen also shows?There is an exophytic small fibroid lesion lower pole left kidney which is indeterminate. added abd sono may need urology depending upon renal us. 4. dvt prophylax: s/c lovenox. Quality Stroke Does the patient have a stroke diagnosis?: No VTE Prior VTE?: No VTE Risk Level:: Medical - moderate - high VTE Device Contraindication: N/A - Device Ordered VTE Drug Contraindication: N/A - Med Ordered
[2021-08-18 09:08] LABS: Alanine Aminotransferase 446 U/L (0-40); Albumin Level 3.9 g/dL (3.5-5.0); Alkaline Phosphatase 133 U/L (39-117); Aspartate Amino Transferase 227 U/L (5-37); Bilirubin Direct 0.8 mg/dL (0.0-0.5); Total Protein 6.6 g/dL (6.5-8.0)
--- NOTE | 2021-08-18 09:26 | PC.NURSE ---
called med/surg to give report awaiting a call back
--- NOTE | 2021-08-18 10:05 | PC.NURSE ---
report given to amy nagel
--- NOTE | 2021-08-18 13:37 | PM.GICN ---
History of Present Illness Data of Consult Service Date: 08/18/21 Requesting physician: Elizabeth Niño Primary Care Provider: Daryn Oseguera MD HPI Reason for consult: Abdominal pain, elevated LFTs, gallstones 66 YM with HTN, sarcoidosis involving the lungs, hypothyroidism, hx colonic polyps s/p recent colonoscopy seen at [facility] on 08/17/21 with 2 day hx of Epigastric and RUQ abd pain. Pt gives a hx of abd pain starting after he ate a breakfast sandwich. Pt complains of constipation and denies nausea vomiting or diarrhea, fever or chills. Pain was initially constant and he continues to have mild pain?below the right upper quadrant and right flank area. After colonoscopy he did not had any pain for a week or so. Last BM was yesterday. ? Pt denies any history of alcohol use or salicylate use , In the ED, lab evaluation showed: wbc: 6.4 hct: 14.3/41 platlets:182 lactic acid: normal elevated lft's - AST and ALT elevated as well as bili, alkaline phosphatase is borderline elevated. blood culture pending IMAGING STUDIES: 08/17/[address] scan showed: Cholelithiasis without wall thickening. No intrahepatic ductal dilatation. ? Moderate constipation. ? Bilateral prominent pelvicalyceal system but no obstructive etiology seen. There is no other hydroureter. There are left lower pole and mid pole renal cysts cysts. There is an exophytic small fibroid lesion lower pole left kidney which is indeterminate. abd us:IMPRESSION: Abnormal.? Gallbladder hydrops is present, and there appear to be stones in the region of the gallbladder neck. No gallbladder wall edema or pericholecystic fluid. There is reportedly pain over the region of the gallbladder, and pain could be secondary to biliary colic or early onset cholecystitis. 08/18/21 MRCP SHOWED: Enlarged gallbladder and gallstones in the neck of the gallbladder. Gallbladder wall is slightly thickened and edematous and there is trace pericholecystic fluid. Appearance is concerning for acute cholecystitis. Normal caliber intra and extrahepatic bile ducts. No common bile duct stone seen. Slightly enlarged spleen. Bilateral renal peripelvic cysts. Review of Systems Constitutional: Constitutional: Denies chills and Denies fever(s) Cardiovascular: Cardiovascular: Denies chest pain, Denies dyspnea and Denies dyspnea on exertion Respiratory: Respiratory: Denies cough, Denies dyspnea and Denies dyspnea on exertion Gastrointestinal: Gastrointestinal: Denies hematochezia and Denies change in bowel habits Genitourinary: Genitourinary: Denies hematuria and Denies difficulty urinating Musculoskeletal: Musculoskeletal: Denies back pain and Denies limited range of motion Neurologic: Denies focal weakness and Denies convulsions Psychiatric: Psychiatric: Denies depression and Denies mood swings PMFSH Past Medical History Medical History Colon polyp Gallstone Hypertension Sarcoidosis Surgical History Surgical History History of hip replacement History of laparoscopic cholecystectomy (~2020) Status post laparoscopic cholecystectomy Social History Social History Household Members: Spouse Housing: House Do you presently have visiting nurse or other home services: No Patient Tobacco Use Status: Never used Tobacco Second Hand Smoke Exposure: No service: No Current occupational status: retired [employer] Allergies Allergy/AdvReac Type Severity Reaction Status Date / Time No Known Allergies Allergy Verified 09/01/21 10:19 Active Medications: Current Medications Acetaminophen (Acetaminophen 325 Mg Tablet) 650 mg PO Q8H PRN PRN Reason: Pain, Mild (Pain Scale 1-3) Last Admin: 08/17/21 23:16 Dose: 650 mg Documented by: Amlodipine Besylate (Amlodipine Besylate 5 Mg Tablet) 5 mg PO DAILY [facility]; Protocol Last Admin: 08/18/21 08:23 Dose: 5 mg Documented by: Lactated Ringer's (Lr) 1,000 mls @ 80 mls/hr IVCONT .[id number] [facility] Last Admin: 08/18/21 06:10 Dose: 80 mls/hr Documented by: Levothyroxine Sodium (Levothyroxine Sodium 50 Mcg Tablet) 50 mcg PO DAILY@0600 [facility] Last Admin: 08/18/21 06:10 Dose: 50 mcg Documented by: Pharmacy Consult (Consult Rx Perform Med Rec) 1 each MISCELLANE ONCE PRN PRN Reason: Consult order Sodium Chloride (0.9 % Sodium Chloride Flush 3 Ml Syringe) 3 ml IVFLUSH QSHIFT [facility] Last Admin: 08/18/21 08:23 Dose: 3 ml Documented by: Tamsulosin HCl (Tamsulosin Hcl 0.4 Mg Capsule) 0.4 mg PO DAILY@1730 [facility] Last Admin: 08/17/21 16:21 Dose: 0.4 mg Documented by: Home Medications Medication Instructions Recorded Confirmed Last Taken Type amlodipine 5 mg tablet 1 tab PO DAILY 08/17/21 08/17/21 08/16/21 History celecoxib 200 mg capsule 1 cap PO DAILY PRN 08/17/21 08/17/21 Unknown History levothyroxine 50 mcg tablet 1 tab PO DAILY 08/17/21 08/17/21 08/16/21 History tamsulosin 0.4 mg capsule 1 cap PO DAILY 08/17/21 08/17/21 08/16/21 History Physical Exam Vital Signs: Vital Signs: Last Vital Signs Temp 98.1 F 08/18/21 11:55 Pulse 64 08/18/21 11:55 Resp 18 08/18/21 11:55 BP 138/70 08/18/21 11:55 Pulse Ox 97 08/18/21 11:55 BMI result Body Mass Index 31.4 Const: General: healthy appearing and no acute distress Nutritional Appearance: obese Orientation/consciousness: patient oriented x3 Limitations: no limitations HENMT: Head: Yes normal to inspection Ears: hearing grossly normal bilaterally Mouth: Normal oral and palatal mucosa present Eyes: Sclerae: sclerae normal Pupils: Equal, round and reactive pupils present Neck: Neck: Yes normal visual inspection Chest: Chest palpation & inspection: normal inspection of the chest Resp: Effort & Inspection: normal respiratory effort Auscultation: clear to auscultation bilaterally Cardio: Palpation: normal PMI Rate: regular rate Rhythm: regular rhythm Heart sounds: S1 normal heart sound present, S2 normal heart sound present and no murmurs GI: Palpation (GI): Soft to palpation, nontender and No hepatosplenomegaly present Auscultation: normal bowel sounds Rectal Exam - Male: Yes deferred Skin: General skin exam: no rashes or lesions noted Neuro: General: patient oriented x3, gait normal and moves all extremities Cranial nerves: Yes Equal, round and reactive pupils present Psych: Appearance: grossly normal Mental Status: mental status grossly normal Results Labs CBC & Chem 7: 08/18/21 06:46 08/19/21 04:54 Labs: Short CBC 08/18/21 Range/Units 06:46 WBC 5.3 (4.8-10.8) X10*3/uL Hgb 15.0 (14.0-18.0) g/dl Hct 46.3 (42.0-52.0) % Plt Count 151 L (160-400) X10*3/uL BMP 08/18/21 06:46 Sodium 141 Potassium 4.0 Chloride 107 Carbon Dioxide 24 BUN 11 Creatinine 0.75 Calcium 8.8 Liver Function 08/18/21 Range/Units 06:46 Total Bilirubin 2.0 H (0.0-1.0) mg/dL Direct Bilirubin 0.8 H (0.0-0.5) mg/dL AST 227 H (5-37) U/L ALT 446 H (0-40) U/L Alkaline Phosphatase 133 H (39-117) U/L Albumin 3.9 (3.5-5.0) g/dL Microbiology Microbiology Results: Microbiology 08/17/21 11:04 Blood - Venous Blood Culture - Preliminary No growth after 24 hours. 08/17/21 10:28 Blood - Venous Blood Culture - Preliminary No growth after 24 hours. Assessment and Plan (1) Elevated LFTs: Status: Resolved (2) Gallstone: Status: Resolved (3) Abdominal pain: Qualifiers: Abdominal location: right lower quadrant Qualified Code(s): R10.31 - Right lower quadrant pain Status: Resolved Plan 66 YM with HTN, sarcoidosis involving the lungs, hypothyroidism, hx colonic polyps s/p recent colonoscopy seen at [facility] on 08/17/21 with 2 day hx of Epigastric and RUQ abd pain. ABD CT scan showed cholelithiasis without wall thickening or iintrahepatic ductal dilatation. MRCP showed an enlarged gallbladder and gallstones in the neck of the gallbladder with slightly thickened and edematous GB wall and trace pericholecystic fluid. Appearance is concerning for acute cholecystitis. Normal caliber intra and extrahepatic bile ducts. No common bile duct stone seen.LFTs are improving. RECOMMENDATIONS: 1. Agree with proceeding with Lap [place] with IOC as advised by surgery - scheduled for 08/20/21 Procedures Date of Service Date of Service: 08/18/21
[2021-08-18] MEDS: Acetaminophen 325 MG TABLET 650 MG PO (13:56)
--- NOTE | 2021-08-18 16:40 | PM.EVENT ---
Event Note Date of Service: 08/18/21 Event Note: MRI reviewed - no evidence of CBD stone or acute obstruction at this time Abdomen remained soft, benign, no Agrawal's sign LFTs much improved today Follow LFTs Explained to patient that he likely had passed the stone causing his pain over the weekend and elevated LFTs Explained the option of proceeding with cholecystectomy Reviewed the technique of lap cholecystectomy possible open, explained risks including but not limited to bleeding, infections, injury to bowel, liver and bile duct, retained stones, bile leak, well as the benefits and alternatives Continue to follow LFTs tomorrow Possible lap cholecystectomy on Wednesday ok for clear liquids tonight
[2021-08-18] MEDS: Tamsulosin HCL 0.4 MG CAPSULE PO (17:09)
[2021-08-19 03:25] VITALS: BP 138/74; PULSE 58; RESP 18; TEMP 36.3; O2SAT 96
[2021-08-19] MEDS: Lactated Ringers 1,000 ML 80 ML IVCONT ×2 (05:07→18:48)
[2021-08-19] MEDS: Levothyroxine Sodium 50 MCG TABLET PO (05:07)
[2021-08-19 06:37] LABS: Alanine Aminotransferase 274 U/L (0-40); Albumin Level 3.7 g/dL (3.5-5.0); Alkaline Phosphatase 110 U/L (39-117); Anion Gap 11 (12-20); Aspartate Amino Transferase 82 U/L (5-37); Bilirubin Direct 0.7 mg/dL (0.0-0.5); Bilirubin Total 1.7 mg/dL (0.0-1.0); Blood Urea Nitrogen 12 mg/dL (9-16); Calcium 8.8 mg/dL (8.4-10.2); Carbon Dioxide 27 mmol/L (22-29); Chloride 107 mmol/L (96-108); Creatinine Clr Calc Pharmacy 113.1; Estimated Glomerular Filt Rate > 60; Glucose Random 85 mg/dL (60-115); Potassium 3.6 mmol/L (3.3-5.1); Sodium 141 mmol/L (135-145); Total Protein 5.9 g/dL (6.5-8.0)
[2021-08-19 08:00] VITALS: BP 137/78; PULSE 55; RESP 18; TEMP 36.3; O2SAT 98
--- NOTE | 2021-08-19 08:26 | PM.PNGS ---
Subjective Subjective Date of Service: 08/19/21 <Mayuri Koehler PA-C - Last Filed: 08/19/21 08:34> 08/19/21 <Dakota Manzo MD - Last Filed: 08/19/21 12:42> Interval history: Feels better this morning. Pain is now very mild. Tolerating liquids. <Mayuri Koehler PA-C - Last Filed: 08/19/21 08:34> Physical Exam Vital Signs: Vital Signs: Last Vital Signs Temp 97.3 F 08/19/21 08:00 Pulse 55 08/19/21 08:00 Resp 18 08/19/21 08:00 BP 137/78 08/19/21 08:00 Pulse Ox 98 08/19/21 08:00 BMI result Body Mass Index 31.4 <Mayuri Koehler PA-C - Last Filed: 08/19/21 08:34> Const: General: no acute distress and alert <Mayuri Koehler PA-C - Last Filed: 08/19/21 08:34> Orientation/consciousness: patient oriented x3 <Mayuri Koehler PA-C - Last Filed: 08/19/21 08:34> Eyes: Sclerae: sclerae normal <Mayuri Koehler PA-C - Last Filed: 08/19/21 08:34> Resp: Effort & Inspection: normal respiratory effort <Mayuri Koehler PA-C - Last Filed: 08/19/21 08:34> GI: Inspection: Yes normal to inspection and No distended <Mayuri Koehler PA-C - Last Filed: 08/19/21 08:34> Palpation (GI): Soft to palpation, Tenderness to palpation present (GI) (very mild RUQ), no guarding and not rigid <Mayuri Koehler PA-C - Last Filed: 08/19/21 08:34> Skin: General skin exam: no rashes or lesions noted <CALE Rutledge Last Filed: 08/19/21 08:34> Neuro: General: patient oriented x3 <CALE Rutledge Last Filed: 08/19/21 08:34> Extrem: General: Yes no clubbing, cyanosis or edema <Mayuri Koehler PA-C - Last Filed: 08/19/21 08:34> Objective Data Active Medications Acetaminophen (Acetaminophen 325 Mg Tablet) 650 mg PO Q8H PRN PRN Reason: Pain, Mild (Pain Scale 1-3) Last Admin: 08/18/21 13:56 Dose: 650 mg Documented by: HENRY Amlodipine Besylate (Amlodipine Besylate 5 Mg Tablet) 5 mg PO DAILY [facility]; Protocol Last Admin: 08/18/21 08:23 Dose: 5 mg Documented by: MATHEUS Lactated Ringer's (Lr) 1,000 mls @ 80 mls/hr IVCONT .[id number] [facility] Last Admin: 08/19/21 05:07 Dose: 80 mls/hr Documented by: MARIA D Levothyroxine Sodium (Levothyroxine Sodium 50 Mcg Tablet) 50 mcg PO DAILY@0600 [facility] Last Admin: 08/19/21 05:07 Dose: 50 mcg Documented by: MARIA D Pharmacy Consult (Consult Rx Perform Med Rec) 1 each MISCELLANE ONCE PRN PRN Reason: Consult order Sodium Chloride (0.9 % Sodium Chloride Flush 3 Ml Syringe) 3 ml IVFLUSH QSHIFT [facility] Last Admin: 08/18/21 19:23 Dose: 3 ml Documented by: MARIA D Tamsulosin HCl (Tamsulosin Hcl 0.4 Mg Capsule) 0.4 mg PO DAILY@1730 [facility] Last Admin: 08/18/21 17:09 Dose: 0.4 mg Documented by: HENRY <Mayuri Koehler PA-C - Last Filed: 08/19/21 08:34> Labs CBC & Chem 7: : 08/18/21 06:46 08/19/21 04:54 <Mayuri Koehler PA-C - Last Filed: 08/19/21 08:34> Labs: Laboratory Results - last 24 hr 08/18/21 08/19/21 08/19/21 06:46 04:54 04:54 Anion Gap Cancelled 11 L Estim Creat Clear Calc Cancelled 113.1 Estimated GFR Cancelled > 60 Random Glucose Cancelled 85 Calcium Cancelled 8.8 Total Bilirubin 2.0 H 1.7 H Direct Bilirubin 0.8 H 0.7 H AST 227 H 82 H ALT 446 H 274 H Alkaline Phosphatase 133 H 110 Total Protein 6.6 5.9 L Albumin 3.9 3.7 <Mayuri Koehler PA-C - Last Filed: 08/19/21 08:34> Microbiology Microbiology Results: Microbiology 08/17/21 11:04 Blood Culture - Preliminary Blood - Venous No growth after 24 hours. 08/17/21 10:28 Blood Culture - Preliminary Blood - Venous No growth after 24 hours. <Mayuri Koehler PA-C - Last Filed: 08/19/21 08:34> Procedures Date of Service Date of Service: 08/19/21 <Mayuri Koehler PA-C - Last Filed: 08/19/21 08:34> Progress Note: A&P Assessment and plan (1) Gallstone: Status: Acute <Mayuri Koehler PA-C - Last Filed: 08/19/21 08:34> Assessment and Plan: says has very minimal pain if at all no fever looks comfortable abdomen soft, nontender, no Agrawal's sign LFTs continue to improve plan lap sridhar tomorrow reviewed with him the technique of lap cholecystectomy and possible open. Discussed risks including but not limited to bleeding, infections, injury to bowel, liver, bile duct, retained stones, bile leak as well as the benefits and alternatives he has given consent procedures scheduled in the morning for tomorrow <Dakota Manzo MD - Last Filed: 08/19/21 12:42> (2) Elevated LFTs: Status: Acute <Mayuri Koehler PA-C - Last Filed: 08/19/21 08:34> Assessment and Plan: 66 year old male admitted with RUQ pain found to have elevated LFTs. Imaging showed gallstones, ?gallbladder hydrops. He therefore underwent MRCP yesterday which did not show any biliary ductal dilatation or CBD stone, however the gallbladder was enlarged with gallstones in the neck with wall thickening and edema. MRCP negative for CBD obstruction and his LFTs have now significantly improved which points towards passing a stone given the rapid improvement. Imaging also suggestive of acute cholecystitis. Recommended to proceed with laparoscopic cholecystectomy possible open. He would like to proceed. Will add onto the OR schedule for tomorrow. Patient understands and agrees with plan. Can continue clear liquids for now, NPO after midnight. <Mayuri Koehler PA-C - Last Filed: 08/19/21 08:34> Fall Risk Details Current Medications: Current Medications Acetaminophen (Acetaminophen 325 Mg Tablet) 650 mg PO Q8H PRN PRN Reason: Pain, Mild (Pain Scale 1-3) Last Admin: 08/18/21 13:56 Dose: 650 mg Documented by: Amlodipine Besylate (Amlodipine Besylate 5 Mg Tablet) 5 mg PO DAILY [facility]; Protocol Last Admin: 08/18/21 08:23 Dose: 5 mg Documented by: Lactated Ringer's (Lr) 1,000 mls @ 80 mls/hr IVCONT .[id number] [facility] Last Admin: 08/19/21 05:07 Dose: 80 mls/hr Documented by: Levothyroxine Sodium (Levothyroxine Sodium 50 Mcg Tablet) 50 mcg PO DAILY@0600 [facility] Last Admin: 08/19/21 05:07 Dose: 50 mcg Documented by: Pharmacy Consult (Consult Rx Perform Med Rec) 1 each MISCELLANE ONCE PRN PRN Reason: Consult order Sodium Chloride (0.9 % Sodium Chloride Flush 3 Ml Syringe) 3 ml IVFLUSH QSHIFT [facility] Last Admin: 08/18/21 19:23 Dose: 3 ml Documented by: Tamsulosin HCl (Tamsulosin Hcl 0.4 Mg Capsule) 0.4 mg PO DAILY@1730 [facility] Last Admin: 08/18/21 17:09 Dose: 0.4 mg Documented by: <Mayuri Koehler PA-C - Last Filed: 08/19/21 08:34> Time Spent With Patient Time: Total time spent is greater than 50% in coordination of care (as documented) at patient's floor/unit and/or counseling patient: <Mayuri Koehler PA-C - Last Filed: 08/19/21 08:34> Time with patient: 15 - 24 minutes <Mayuri Koehler PA-C - Last Filed: 08/19/21 08:34> Quality Stroke Does the patient have a stroke diagnosis?: No <Mayuri Koehler PA-C - Last Filed: 08/19/21 08:34> VTE Prior VTE?: No <Mayuri Koehler PA-C - Last Filed: 08/19/21 08:34> VTE Risk Level:: Medical - moderate - high <CALE Rutledge Last Filed: 08/19/21 08:34> VTE Device Contraindication: N/A - Device Ordered <Mayuri Koehler PA-C - Last Filed: 08/19/21 08:34> VTE Drug Contraindication: N/A - Med Ordered <Mayuri Koehler PA-C - Last Filed: 08/19/21 08:34>
--- NOTE | 2021-08-19 08:54 | P.PNIM_ITS ---
Subjective Subjective Date of Service: 08/19/21 Interval History: f/u on abd pain, elevated lfts and gallstone--has mild pain, lfts trending down. Review of Systems no fever no abdominal pain, no n/v Physical Exam Vital Signs: Vital Signs: Last Vital Signs Temp 97.3 F 08/19/21 08:00 Pulse 55 08/19/21 08:00 Resp 18 08/19/21 08:00 BP 137/78 08/19/21 08:00 Pulse Ox 98 08/19/21 08:00 BMI result Body Mass Index 31.4 Const: Other: General: AO X 3, no acute distress Resp: CTA bilateral CVS: S1,S2,RRR GI: +BS, NT, no distention Skin: No rash Neuro: motor grossly intact Psych: appropriate affect Objective Data Active Medications Acetaminophen (Acetaminophen 325 Mg Tablet) 650 mg PO Q8H PRN PRN Reason: Pain, Mild (Pain Scale 1-3) Last Admin: 08/18/21 13:56 Dose: 650 mg Documented by: HENRY Amlodipine Besylate (Amlodipine Besylate 5 Mg Tablet) 5 mg PO DAILY [facility]; Protocol Last Admin: 08/18/21 08:23 Dose: 5 mg Documented by: MATHEUS Lactated Ringer's (Lr) 1,000 mls @ 80 mls/hr IVCONT .[id number] [facility] Last Admin: 08/19/21 05:07 Dose: 80 mls/hr Documented by: MARIA D Cefotetan Disodium 2 gm/ (Sodium Chloride) 50 mls @ 100 mls/hr IV PREOP ONE Stop: 08/20/21 08:53 Levothyroxine Sodium (Levothyroxine Sodium 50 Mcg Tablet) 50 mcg PO DAILY@0600 [facility] Last Admin: 08/19/21 05:07 Dose: 50 mcg Documented by: MARIA D Pharmacy Consult (Consult Rx Perform Med Rec) 1 each MISCELLANE ONCE PRN PRN Reason: Consult order Sodium Chloride (0.9 % Sodium Chloride Flush 3 Ml Syringe) 3 ml IVFLUSH QSHIFT [facility] Last Admin: 08/18/21 19:23 Dose: 3 ml Documented by: MARIA D Tamsulosin HCl (Tamsulosin Hcl 0.4 Mg Capsule) 0.4 mg PO DAILY@1730 [facility] Last Admin: 08/18/21 17:09 Dose: 0.4 mg Documented by: HENRY Labs CBC & Chem 7: 08/18/21 06:46 08/19/21 04:54 Labs: Laboratory Results - last 24 hr 08/18/21 08/19/21 08/19/21 06:46 04:54 04:54 Anion Gap Cancelled 11 L Estim Creat Clear Calc Cancelled 113.1 Estimated GFR Cancelled > 60 Random Glucose Cancelled 85 Calcium Cancelled 8.8 Total Bilirubin 2.0 H 1.7 H Direct Bilirubin 0.8 H 0.7 H AST 227 H 82 H ALT 446 H 274 H Alkaline Phosphatase 133 H 110 Total Protein 6.6 5.9 L Albumin 3.9 3.7 Microbiology Microbiology Results: Microbiology 08/17/21 11:04 Blood Culture - Preliminary Blood - Venous No growth after 24 hours. 08/17/21 10:28 Blood Culture - Preliminary Blood - Venous No growth after 24 hours. Assessment and Plan (1) Abdominal pain: Status: Acute Assessment and Plan: 66-year-old male presenting with right upper quadrant pain?and elevated lft's: 1. Abdominal pain, elevated LFTs, supsected passed gallstone, LFTS trending down, MRCP showed no CBD stone. For CCy today or tomorrow 2..HTN: CONTINUE AMLODIPINE 3. Hypothyroidism : continue levothyroxine 4. Ct abdomen also shows?There is an exophytic small fibroid lesion lower pole left kidney which is indeterminate. added abd US showed cysts 4. dvt prophylax: s/c lovenox. Quality Stroke Does the patient have a stroke diagnosis?: No VTE Prior VTE?: No VTE Risk Level:: Medical - moderate - high VTE Device Contraindication: N/A - Device Ordered VTE Drug Contraindication: N/A - Med Ordered
[2021-08-19] MEDS: amLODIPine Besylate 5 MG TABLET PO (09:56)
[2021-08-19] MEDS: Acetaminophen 325 MG TABLET 650 MG PO (10:05)
[2021-08-19 12:00] VITALS: BP 118/77; PULSE 74; RESP 18; TEMP 36.2; O2SAT 100
--- NOTE | 2021-08-19 13:20 | MHC.CM.PN ---
DEL[facility] 08/19/21, EMR REVIEWED, PT ADMITTED W/ABD PAIN AND ELEVATED LFTS, PLAN FOR LAP [facility] TOMORROW 08/20/21, CM MET W/PT WHO IS A&OX4, PT REPORTS HE LIVES W/HIS ABENA AND SHE WILL PROVIDE TRANSPORT, PT IS INDEPENDENT W/ALL CARE, NO DME AND NO HOME SERVICES, PT REPORTS HE HAS HAD PFIZER VACCINE AND BOOSTER, NO HCP AND WOULD LIKE TO COMPLETE W/CM PRIOR TO D/C. PT REPORTS HE IS OK W/[facility] SERVICES IF RECOMMENDED. D/C PLAN: HOME VS HOME W/PT, [facility] FOR TRANSPRT. COVID VACCINE: griddig 11/14, 12/05 AND 06/10
[2021-08-19 15:53] VITALS: BP 141/65; PULSE 57; RESP 18; TEMP 37.2; O2SAT 98
[2021-08-19] MEDS: Tamsulosin HCL 0.4 MG CAPSULE PO (18:47)
--- NOTE | 2021-08-19 18:55 | PC.NURSE ---
P patient refuses sequentials I Dr. Coronado notified E encouraged ambulation and leg excercises,risk of blood clots explained to patient
[2021-08-19 19:32] VITALS: BP 117/53; PULSE 51; RESP 18; TEMP 36.4; O2SAT 96
[2021-08-19 23:26] VITALS: BP 123/67; PULSE 58; RESP 18; TEMP 36.3; O2SAT 95
[2021-08-20] VITALS (11 sets, daily range): BP systolic 122–159; BP diastolic 73–86; PULSE 51–91; RESP 11–18; TEMP 36.1–36.8; O2SAT 93–98
[2021-08-20 04:00] LABS: Hepatitis A Antibody IgM 0.14 Index (0-0.79); ~Hepatitis A Antibody IgM Nonreactive (Nonreactive)
--- NOTE | 2021-08-20 07:19 | MHC.SHP ---
Pre-Procedural Eval Section A Date of Service: 08/20/21 The patient is an INPATIENT: Yes Changes since office visit: Yes Patient answered all questions The History & Physical has been completed within 30 days and I have reviewed it.: Yes Section B Chief Complaint: Abd pain, elevated lft's Allergies: Allergies Allergy/AdvReac Type Severity Reaction Status Date / Time No Known Allergies Allergy Unverified 08/17/21 05:59 Plan I have reviewed the history and physical and performed a pertinent physical examination on my patient. No changes have occurred unless specified.
--- NOTE | 2021-08-20 07:23 | P.CONAN_ITS ---
[facility] Active Problems Active Problems: All Active Problems (Updated 08/18/21 @ 13:56 by Elizabeth higgins MD) Elevated LFTs (Acute) Gallstone (Acute) Gallbladder hydrops (Acute) Abdominal pain (Acute) Past Medical History Medical History Colon polyp Gallstone Hypertension Sarcoidosis Functional capacity: independent ambulation Family History Family history of problems with anesthesia: No Surgical History Surgical History History of hip replacement History of Problems with Anesthesia: No Social History Social History Household Members: Spouse Housing: House Do you presently have visiting nurse or other home services: No Patient Tobacco Use Status: Never used Tobacco Second Hand Smoke Exposure: No Use of substances other than those prescribed or required for medical reasons: No Currently Displaying Signs/Symptoms of Drug Intoxication Withdrawal: No Have you been hit, kicked, punched, or otherwise hurt by someone within the past year? If so, by whom?: No Do you feel safe in your current relationship?: No Is there a partner from a previous relationship who is making you feel unsafe now?: No Are you made to feel afraid or neglected: No Are you DNR?: No Advance Directives: No Advance Directives Information Provided: No Advance Directives on File: No Do you have thoughts of harming others: None Do you have a plan to hurt others: No Plan Recently lost weight without trying: No Nutrition Risks: No Nutritional Risk service: No Current occupational status: retired Meds Allergies Allergy/AdvReac Type Severity Reaction Status Date / Time No Known Allergies Allergy Unverified 08/17/21 05:59 Active Medications: Current Medications Acetaminophen (Acetaminophen 325 Mg Tablet) 650 mg PO Q8H PRN PRN Reason: Pain, Mild (Pain Scale 1-3) Last Admin: 08/19/21 10:05 Dose: 650 mg Documented by: Amlodipine Besylate (Amlodipine Besylate 5 Mg Tablet) 5 mg PO DAILY [facility]; Protocol Last Admin: 08/19/21 09:56 Dose: 5 mg Documented by: Lactated Ringer's (Lr) 1,000 mls @ 80 mls/hr IVCONT .[id number] [facility] Last Admin: 08/19/21 18:48 Dose: 80 mls/hr Documented by: Cefotetan Disodium 2 gm/ (Sodium Chloride) 50 mls @ 100 mls/hr IV PREOP ONE Stop: 08/20/21 08:53 Levothyroxine Sodium (Levothyroxine Sodium 50 Mcg Tablet) 50 mcg PO DAILY@0600 [facility] Last Admin: 08/20/21 05:53 Dose: Not Given Documented by: Pharmacy Consult (Consult Rx Perform Med Rec) 1 each MISCELLANE ONCE PRN PRN Reason: Consult order Sodium Chloride (0.9 % Sodium Chloride Flush 3 Ml Syringe) 3 ml IVFLUSH QSHIFT [facility] Last Admin: 08/20/21 01:55 Dose: Not Given Documented by: Tamsulosin HCl (Tamsulosin Hcl 0.4 Mg Capsule) 0.4 mg PO DAILY@1730 [facility] Last Admin: 08/19/21 18:47 Dose: 0.4 mg Documented by: Home Medications Medication Instructions Recorded Confirmed Last Taken Type amlodipine 5 mg tablet 1 tab PO DAILY 08/17/21 08/17/21 08/16/21 History celecoxib 200 mg capsule 1 cap PO DAILY PRN 08/17/21 08/17/21 Unknown History levothyroxine 50 mcg tablet 1 tab PO DAILY 08/17/21 08/17/21 08/16/21 History tamsulosin 0.4 mg capsule 1 cap PO DAILY 08/17/21 08/17/21 08/16/21 History Exam Exam Date and Time: August 20, 2021 0723 Height,Weight and Vital Signs: Height 6 ft 1 in Weight 107.955 kg Last Vital Signs Temp 97.4 F 08/20/21 06:39 Pulse 55 08/20/21 06:39 Resp 16 08/20/21 06:39 BP 137/75 08/20/21 06:39 Pulse Ox 98 08/20/21 06:39 Pertinent Lab Results Pertinent Lab Results: Laboratory Tests 08/17/21 08/17/21 08/17/21 06:01 06:01 10:28 WBC 6.4 RBC 4.96 Hgb 14.3 Hct 41.5 L MCV 83.7 MCH 28.8 MCHC 34.5 RDW 13.2 Plt Count 182 MPV 10.0 Immature Gran % (Auto) 0.3 Neut % (Auto) 79.5 H Lymph % (Auto) 7.2 L [place] % (Auto) 11.8 H Eos % (Auto) 0.9 Baso % (Auto) 0.3 Lymph # (Auto) 0.5 L [place] # (Auto) 0.8 Eos # (Auto) 0.1 Baso # (Auto) 0.0 Abs Immat Gran (auto) 0.02 Absolute Neuts (auto) 5.1 Absolute Nucleated RBC 0.000 Nucleated RBC % (auto) 0.0 PT INR Sodium 139 Potassium 3.8 Chloride 106 Carbon Dioxide 23 Anion Gap 14 BUN 14 Creatinine 0.82 Estim Creat Clear Calc 117.2 Estimated GFR > 60 Random Glucose 126 H Lactic Acid 0.7 Calcium 9.2 Total Bilirubin 4.6 H Direct Bilirubin AST 658 H ALT 607 H Alkaline Phosphatase 118 H Total Protein 7.0 Albumin 4.3 Lipase 224 H Urine Color Urine Appearance Urine pH Ur Specific [place] Urine Protein Urine Glucose (UA) Urine Ketones Urine Blood Urine Nitrite Ur Leukocyte Esterase Salicylates Acetaminophen COVID-19 ([facility]) COVID-19 Clin Com Hepatitis A IgM Ab Hep Bs Antigen Hep Bs Antibody Hep B Core Total Ab Hepatitis C Ab (EIA) 08/17/21 08/17/21 08/17/21 10:28 13:54 13:54 WBC RBC Hgb Hct MCV MCH MCHC RDW Plt Count MPV Immature Gran % (Auto) Neut % (Auto) Lymph % (Auto) [place] % (Auto) Eos % (Auto) Baso % (Auto) Lymph # (Auto) [place] # (Auto) Eos # (Auto) Baso # (Auto) Abs Immat Gran (auto) Absolute Neuts (auto) Absolute Nucleated RBC Nucleated RBC % (auto) PT INR Sodium Potassium Chloride Carbon Dioxide Anion Gap BUN Creatinine Estim Creat Clear Calc Estimated GFR Random Glucose Lactic Acid Calcium Total Bilirubin Direct Bilirubin AST ALT Alkaline Phosphatase Total Protein Albumin Lipase Urine Color YELLOW Urine Appearance CLEAR Urine pH 6.0 Ur Specific [place] 1.015 Urine Protein NEG Urine Glucose (UA) 100 H Urine Ketones NEG Urine Blood NEG Urine Nitrite NEG Ur Leukocyte Esterase NEG Salicylates Acetaminophen COVID-19 (MICHELE) Negative COVID-19 Clin Com See Note Hepatitis A IgM Ab Nonreactive Hep Bs Antigen Negative Hep Bs Antibody NONREACTIVE Hep B Core Total Ab Nonreactive Hepatitis C Ab (EIA) Nonreactive 1208/18/21 08/18/21 16:10 06:46 06:46 WBC 5.3 RBC 5.37 Hgb 15.0 Hct 46.3 MCV 86.2 MCH 27.9 MCHC 32.4 RDW 13.2 Plt Count 151 L MPV 10.1 Immature Gran % (Auto) Neut % (Auto) Lymph % (Auto) [place] % (Auto) Eos % (Auto) Baso % (Auto) Lymph # (Auto) [place] # (Auto) Eos # (Auto) Baso # (Auto) Abs Immat Gran (auto) Absolute Neuts (auto) Absolute Nucleated RBC 0.000 Nucleated RBC % (auto) 0.0 PT INR Sodium 141 Potassium 4.0 Chloride 107 Carbon Dioxide 24 Anion Gap 14 BUN 11 Creatinine 0.75 Estim Creat Clear Calc 128.2 Estimated GFR > 60 Random Glucose 75 D Lactic Acid Calcium 8.8 Total Bilirubin 2.0 H Direct Bilirubin 0.8 H AST 227 H ALT 446 H Alkaline Phosphatase 133 H Total Protein 6.6 Albumin 3.9 Lipase Urine Color Urine Appearance Urine pH Ur Specific [place] Urine Protein Urine Glucose (UA) Urine Ketones Urine Blood Urine Nitrite Ur Leukocyte Esterase Salicylates < 5.0 L Acetaminophen < 1 COVID-19 ([facility]HELE) COVID-19 Clin Com Hepatitis A IgM Ab Hep Bs Antigen Hep Bs Antibody Hep B Core Total Ab Hepatitis C Ab (EIA) 08/18/21 08/19/21 08/19/21 06:46 04:54 04:54 WBC RBC Hgb Hct MCV MCH MCHC RDW Plt Count MPV Immature Gran % (Auto) Neut % (Auto) Lymph % (Auto) [place] % (Auto) Eos % (Auto) Baso % (Auto) Lymph # (Auto) [place] # (Auto) Eos # (Auto) Baso # (Auto) Abs Immat Gran (auto) Absolute Neuts (auto) Absolute Nucleated RBC Nucleated RBC % (auto) PT 12.9 INR 1.1 Sodium Cancelled 141 Potassium Cancelled 3.6 Chloride Cancelled 107 Carbon Dioxide Cancelled 27 Anion Gap Cancelled 11 L BUN Cancelled 12 Creatinine Cancelled 0.85 Estim Creat Clear Calc Cancelled 113.1 Estimated GFR Cancelled > 60 Random Glucose Cancelled 85 Lactic Acid Calcium Cancelled 8.8 Total Bilirubin 1.7 H Direct Bilirubin 0.7 H AST 82 H ALT 274 H Alkaline Phosphatase 110 Total Protein 5.9 L Albumin 3.7 Lipase Urine Color Urine Appearance Urine pH Ur Specific [place] Urine Protein Urine Glucose (UA) Urine Ketones Urine Blood Urine Nitrite Ur Leukocyte Esterase Salicylates Acetaminophen COVID-19 ([facility]) COVID-19 Clin Com Hepatitis A IgM Ab Hep Bs Antigen Hep Bs Antibody Hep B Core Total Ab Hepatitis C Ab (EIA) Airway Mallampati Class: I TM Dist: >3cm Neck ROM: Full Heart: RRR Lungs: CTA Assessment and Plan Final Anesthetic Review Family History of Problems with Anesthesia: No History of Problems with Anesthesia: No ASA Class: II Final Preanesthetic Review: No Changes in Pt Med Stat, Meds/Allgs Chart Reviewed, Consent Obtained/Reviewed and Anes Risks/Benef Reviewed Patient Risk: Intermediate Procedure Risk: Intermediate Anesthetic Plan Anesthetic Plan: GA Disposition: Standard PACU
[2021-08-20] MEDS: cefoTEtan disodium 2 GM in 0.9 % Sodium Chloride 50 ML IV (07:37)
--- NOTE | 2021-08-20 08:49 | W.PM.OPN ---
Operative Note Operative Note Date of Service: 08/20/21 Narrative: Preop diagnosis: Gallstones, with recent CBD obstruction Postop diagnosis: The same Procedure: Laparoscopic cholecystectomy Surgeon: Dakota Manzo MD virtual assistant for advertisers: DEYSI Koehler The patient is a 66-year-old male, admitted because of pain with markedly elevated LFTs. He was noted have gallstones on imaging studies. His LFTs improved. In an MRI showing no evidence of CBD stone. However, his overall clinical course suggested recent passage of a gallstone through the common bile duct. I therefore offered to him the option of proceeding with cholecystectomy to prevent recurrent episodes. He understood the technique of the planned procedure as well as the risks, benefits, and alternatives and had given consent. He was brought to the operating room placed supine on the table under general anesthesia via endotracheal tube. The abdomen was prepped and draped in the usual sterile fashion. A surgical time-out was done. The patient received Cefotan 2 g IV preoperatively I made a short incision on the supraumbilical margin using a blade 15. This was carried down through the full-thickness of the skin and subcutaneous fat down to the fascia. The fascia was incised. The peritoneum was entered. Through this incision a Kiki port was introduced. Pneumoperitoneum was introduced to a pressure of 15 mm hg. From here on the rest of the procedure was done under vision with the 10 mm laparoscopic With laparoscopic visualization I inserted a 5/12 mm port in the epigastric area below the subcostal margin Through a small incision.. 5 mm ports were introduced via small incisions below the subcostal margin along the anterior axillary line and the midclavicular line. Graspers were placed through these working ports. The patient was placed in head-up and ebve-[id number]-[id number] position. the gallbladder was visualized. This was distended but did not appear to be erythematous nor acutely inflamed. We were able to apply a grasper at the fundus and this was used to retract the gallbladder cephalad. There was note of adherent omentum and anterior were of the gallbladder. this suggested previous or chronic cholecystitis. We therefore had to carefully dissect this with the [place] dissector release this. I was able to eventually apply another grasper towards the pouch of the gallbladder. This was used to retract the gallbladder laterally. At this point therefore, the gallbladder was being retracted in a cephalad and lateral fashion to put the area of the cystic duct on stretch. there was still note of a lot of urine fatty areolar tissue in the area of the neck suggestive of previous cholecystitis. We had to carefully dissect this with the [place] dissector until was able to clearly identify the cystic duct. I was also able to clearly define the confluence of the cystic duct with the neck of the gallbladder. By doing so, I was also able to clearly define a critical view of the hepatocystic triangle. There were no other obvious tubular structures in this area except for a thin structure that was consistent with the cystic artery. I therefore applied clips on the cystic duct with 2 clips being applied distally. The cystic duct was transected between clips using scissors. With traction on the gallbladder wall away from the liver bed, I proceeded to continue to separate the rest of the gallbladder with blunt dissectionto allow more retraction. I was able to clearly see the cystic artery. This was defined with blunt dissection with the [place] dissector. Clips were applied and 2 clips were applied distally. The cystic artery was therefore transected between clips with Endo scissors. We proceeded to then fully retract the gallbladder off of the rest of the liver. By doing so I was able to carefully divide across the hilum with the electrocautery spatula. I reached the interface of the gallbladder wall and the liver bed. I used the electrocautery spatula to incise the peritoneum of the gallbladder at this interface and did a combination of blunt dissection with the tip of the spatula as well as electrocautery itself to separate the gallbladder from the liver bed. We proceeded with this form of dissection all the way to the fundus until the entire gallbladder was completely . The gallbladder was retrieved through an endobag through the umbilical incision. I reinserted all ports and insufflated. I did a lot of irrigation in view of some leakage of bile from the gallbladder earlier when the clip from the gallbladder side of the cystic duct came off.After copious irrigation and suctioning, I proceeded to observe the area of dissection. We noted good hemostasis. I observed all 4 quadrants and there was no other pathology or any bowel injury seen . I then we observed the subhepatic space. There was noted good hemostasis. I therefore desufflated the port sites. I removed all ports under vision with the laparoscope. The umbilical port was removed last. The fascia of the umbilical incision was closed with [id number] Dexon 0 stitch. Skin closure was achieved on all incisions using Dexon 4-0 subcuticular running sutures. Steri-Strips and dressings were applied. Incisions were infiltrated with Marcaine 0.5% for postop analgesia. The procedure was then completed The patient tolerated procedure well. There were no complications noted. Initial and final counts of sponges and instruments were correct. Estimated blood loss was about 75 cc . The patient was extubated without difficulty and transferred to the recovery room with stable vital signs.
--- NOTE | 2021-08-20 08:55 | PM.OP ---
Brief Operative Note Date of Service: 08/20/21 <Mayuri Koehler PA-C - Last Filed: 08/20/21 08:57> Pre-op diagnosis: gallstones, elevated LFTs <Mayuri Koehler PA-C - Last Filed: 08/20/21 08:57> Post-op diagnosis: same (acute cholecystitis) <Mayuri Koehler PA-C - Last Filed: 08/20/21 08:57> Procedure: laparoscopic cholecystectomy <Mayuri Koehler PA-C - Last Filed: 08/20/21 08:57> Surgeon: LEIGH REDMAN MD <Mayuri Koehler PA-C - Last Filed: 08/20/21 08:57> Anesthesia: GETA <Mayuri Koehler PA-C - Last Filed: 08/20/21 08:57> Was an [employer] used for this Procedure?: Yes <Mayuri Koehler PA-C - Last Filed: 08/20/21 08:57> No <Leigh Redman MD - Last Filed: 08/20/21 09:04> [employer]: Mayuri Koehler <Mayuri Koehler PA-C - Last Filed: 08/20/21 08:57> Estimated blood loss (mL): 10 <Mayuri Koehler PA-C - Last Filed: 08/20/21 08:57> Pathology: other (GALLBLADDER) <Mayuri Koehler PA-C - Last Filed: 08/20/21 08:57> Condition: stable <CALE Rutledge Last Filed: 08/20/21 08:57> Disposition: PACU <CALE Rutledge Last Filed: 08/20/21 08:57>
--- NOTE | 2021-08-20 09:37 | MHC.CM.PN ---
EMR REVIEWED, PT HAD TASHA BARROSO TODAY, CURRENTLY IN RECOVERY AND AWAITING TRANSFER BACK TO UNIT, [facility] D/C TOMORROW 08/21/21 HOME NO SERVICES, CM WILL CONT TO FOLLOW D/C NEEDS FOR ANY CHANGE.
--- NOTE | 2021-08-20 09:39 | HO.PM.IMPN ---
Subjective Subjective Date of Service: 08/21/21 Interval History: f/u on abd pain, elevated lfts and gallstone--for surgery today Review of Systems no fever no abdominal pain, no n/v Physical Exam Vital Signs: Vital Signs: Last Vital Signs Temp 991 F H 08/20/21 08:55 Pulse 75 08/20/21 09:20 Resp 11 L 08/20/21 09:20 BP 137/77 08/20/21 09:20 Pulse Ox 96 08/20/21 09:20 BMI result Body Mass Index 31.4 Const: Other: General: AO X 3, no acute distress Resp: CTA bilateral CVS: S1,S2,RRR GI: +BS, NT, no distention Skin: No rash Neuro: motor grossly intact Psych: appropriate affect Objective Data Active Medications Acetaminophen (Acetaminophen 325 Mg Tablet) 650 mg PO Q8H PRN PRN Reason: Pain, Mild (Pain Scale 1-3) Last Admin: 08/19/21 10:05 Dose: 650 mg Documented by: MONICA Amlodipine Besylate (Amlodipine Besylate 5 Mg Tablet) 5 mg PO DAILY [facility]; Protocol Last Admin: 08/19/21 09:56 Dose: 5 mg Documented by: MONICA Fentanyl (Fentanyl Citrate/Pf 100 Mcg/2 Ml Vial) 50 mcg IVPUSH Q5M PRN; Protocol PRN Reason: Pain, Severe (Pain Scale 7-10) Lactated Ringer's (Lr) 1,000 mls @ 80 mls/hr IVCONT .[id number] [facility] Last Admin: 08/19/21 18:48 Dose: 80 mls/hr Documented by: VINNY Levothyroxine Sodium (Levothyroxine Sodium 50 Mcg Tablet) 50 mcg PO DAILY@0600 [facility] Last Admin: 08/20/21 05:53 Dose: Not Given Documented by: MALIK Non-Admin Reason: NPO Ondansetron HCl (Ondansetron Hcl 4 Mg/2 Ml Vial) 4 mg IVPUSH ONCE PRN PRN Reason: Nausea and Vomiting Oxycodone HCl (Oxycodone Hcl Immed Release 5 Mg Tablet) 10 mg PO ONCE PRN PRN Reason: Pain, Severe (Pain Scale 7-10) Pharmacy Consult (Consult Rx Perform Med Rec) 1 each MISCELLANE ONCE PRN PRN Reason: Consult order Sodium Chloride (0.9 % Sodium Chloride Flush 3 Ml Syringe) 3 ml IVFLUSH QSHIFT [facility] Last Admin: 08/20/21 01:55 Dose: Not Given Documented by: MALIK Non-Admin Reason: IV Running Tamsulosin HCl (Tamsulosin Hcl 0.4 Mg Capsule) 0.4 mg PO DAILY@1730 [facility] Last Admin: 08/19/21 18:47 Dose: 0.4 mg Documented by: VINNY Labs CBC & Chem 7: 08/18/21 06:46 08/19/21 04:54 Labs: Laboratory Results - last 24 hr 08/17/21 13:54 Hepatitis A IgM Ab Nonreactive Microbiology Microbiology Results: Microbiology 08/17/21 11:04 Blood Culture - Preliminary Blood - Venous No growth after 48 hours. 08/17/21 10:28 Blood Culture - Preliminary Blood - Venous No growth after 48 hours. Assessment and Plan (1) Abdominal pain: Status: Acute Assessment and Plan: 66-year-old male presenting with right upper quadrant pain?and elevated lft's: 1. Abdominal pain, elevated LFTs, supsected passed gallstone, LFTS trending down, MRCP showed no CBD stone. For CCy today 2..HTN: CONTINUE AMLODIPINE 3. Hypothyroidism : continue levothyroxine 4. Ct abdomen also shows?There is an exophytic small fibroid lesion lower pole left kidney which is indeterminate. added abd US showed cysts 4. dvt prophylax: s/c lovenox. Quality Stroke Does the patient have a stroke diagnosis?: No VTE Prior VTE?: No VTE Risk Level:: Medical - moderate - high VTE Device Contraindication: N/A - Device Ordered VTE Drug Contraindication: N/A - Med Ordered
[2021-08-20] MEDS: oxyCODONE HCl Immed Release 5 MG TABLET 10 MG PO (11:55)
--- NOTE | 2021-08-20 12:59 | PM.EVENT ---
Event Note Date of Service: 08/20/21 Event Note: Seen for postop check He underwent uneventful laparoscopic cholecystectomy earlier today Seems to have good pain control Stable vital signs Abdomen soft He states that he does not think that he may be ready to be discharged today Diet as tolerated Likely home tomorrow Appears to be doing well postop
[2021-08-20] MEDS: 0.9 % Sodium Chloride Flush 3 ML SYRINGE IVFLUSH (15:34)
[2021-08-20] MEDS: Lactated Ringers 1,000 ML 80 ML IVCONT (15:41)
[2021-08-20] MEDS: oxyCODONE HCl Immed Release 5 MG TABLET PO ×2 (15:46→20:30)
[2021-08-20] MEDS: Tamsulosin HCL 0.4 MG CAPSULE PO (18:33)
[2021-08-21] MEDS: Levothyroxine Sodium 50 MCG TABLET PO (06:10)
[2021-08-21 07:15] VITALS: BP 133/67; PULSE 68; RESP 18; TEMP 36.8; O2SAT 95
--- NOTE | 2021-08-21 07:38 | HO.POSTANES ---
Post Anesthesia Evaluation Post Anesthesia Evaluation Vital Signs: Vital Signs Temp Pulse Resp BP Pulse Ox 08/21/21 07:15 98.2 F 68 18 133/67 95 08/20/21 23:31 98.1 F 77 18 142/73 H 93 Anesthesia: General Endotracheal-GETA Mental Status: Awake Pain Control: Satisfactory Nausea/Vomiting: None Hydration: Adequate Anesthesia-Related Issues: No Anes. Related Issues
--- NOTE | 2021-08-21 08:13 | P.PNGS_ITS ---
Subjective Subjective Date of Service: 08/21/21 Interval history: Feels well Says he had a good night Says he is ready to be discharged today Tolerating diet Physical Exam Vital Signs: Vital Signs: Last Vital Signs Temp 98.2 F 08/21/21 07:15 Pulse 68 08/21/21 07:15 Resp 18 08/21/21 07:15 BP 133/67 08/21/21 07:15 Pulse Ox 95 08/21/21 07:15 BMI result Body Mass Index 31.4 Const: General: comfortable and no acute distress Eyes: Sclerae: sclerae normal Resp: Effort & Inspection: normal respiratory effort GI: Other: Incisions clean and dry Palpation (GI): Soft to palpation, not firm and nontender Objective Data Active Medications Acetaminophen (Acetaminophen 325 Mg Tablet) 650 mg PO Q8H PRN PRN Reason: Pain, Mild (Pain Scale 1-3) Last Admin: 08/19/21 10:05 Dose: 650 mg Documented by: MONICA Amlodipine Besylate (Amlodipine Besylate 5 Mg Tablet) 5 mg PO DAILY [facility]; Protocol Last Admin: 08/20/21 12:13 Dose: Not Given Documented by: MONICA Non-Admin Reason: Off Unit: Surgery Levothyroxine Sodium (Levothyroxine Sodium 50 Mcg Tablet) 50 mcg PO DAILY@0600 [facility] Last Admin: 08/21/21 06:10 Dose: 50 mcg Documented by: CONCEPCIÓN Morphine Sulfate (Morphine Sulfate 4 Mg/Ml Cartridge) 4 mg IVPUSH Q4H PRN; Protocol PRN Reason: Pain, Severe (Pain Scale 7-10) Oxycodone HCl (Oxycodone Hcl Immed Release 5 Mg Tablet) 5 mg PO Q4H PRN PRN Reason: Pain, Moderate (Pain Scale 4-6 Last Admin: 08/20/21 20:30 Dose: 5 mg Documented by: VINNY Oxycodone HCl (Oxycodone Hcl Immed Release 5 Mg Tablet) 10 mg PO Q4H PRN PRN Reason: Pain, Severe (Pain Scale 7-10) Pharmacy Consult (Consult Rx Perform Med Rec) 1 each MISCELLANE ONCE PRN PRN Reason: Consult order Sodium Chloride (0.9 % Sodium Chloride Flush 3 Ml Syringe) 3 ml IVFLUSH QSHIFT [facility] Last Admin: 08/21/21 00:17 Dose: Not Given Documented by: CONCEPCIÓN Non-Admin Reason: IV Running Tamsulosin HCl (Tamsulosin Hcl 0.4 Mg Capsule) 0.4 mg PO DAILY@1730 [facility] Last Admin: 08/20/21 18:33 Dose: 0.4 mg Documented by: VINNY Labs CBC & Chem 7: 08/18/21 06:46 08/19/21 04:54 Procedures Date of Service Date of Service: 08/21/21 Progress Note: A&P Assessment and plan (1) Gallstone: Status: Acute Assessment and Plan: Status post laparoscopic cholecystectomy Doing well postop Diet as tolerated No lifting of more than 20 lb Instructed on wound care Will see in the office for follow-up in 2-3 weeks Percocet and ibuprofen p.r.n. for pain Patient says he understands instructions Fall Risk Details Current Medications: Current Medications Acetaminophen (Acetaminophen 325 Mg Tablet) 650 mg PO Q8H PRN PRN Reason: Pain, Mild (Pain Scale 1-3) Last Admin: 08/19/21 10:05 Dose: 650 mg Documented by: Amlodipine Besylate (Amlodipine Besylate 5 Mg Tablet) 5 mg PO DAILY [facility]; Protocol Last Admin: 08/20/21 12:13 Dose: Not Given Documented by: Levothyroxine Sodium (Levothyroxine Sodium 50 Mcg Tablet) 50 mcg PO DAILY@0600 [facility] Last Admin: 08/21/21 06:10 Dose: 50 mcg Documented by: Morphine Sulfate (Morphine Sulfate 4 Mg/Ml Cartridge) 4 mg IVPUSH Q4H PRN; Protocol PRN Reason: Pain, Severe (Pain Scale 7-10) Oxycodone HCl (Oxycodone Hcl Immed Release 5 Mg Tablet) 5 mg PO Q4H PRN PRN Reason: Pain, Moderate (Pain Scale 4-6 Last Admin: 08/20/21 20:30 Dose: 5 mg Documented by: Oxycodone HCl (Oxycodone Hcl Immed Release 5 Mg Tablet) 10 mg PO Q4H PRN PRN Reason: Pain, Severe (Pain Scale 7-10) Pharmacy Consult (Consult Rx Perform Med Rec) 1 each MISCELLANE ONCE PRN PRN Reason: Consult order Sodium Chloride (0.9 % Sodium Chloride Flush 3 Ml Syringe) 3 ml IVFLUSH QSHIFT [facility] Last Admin: 08/21/21 00:17 Dose: Not Given Documented by: Tamsulosin HCl (Tamsulosin Hcl 0.4 Mg Capsule) 0.4 mg PO DAILY@1730 [facility] Last Admin: 08/20/21 18:33 Dose: 0.4 mg Documented by: Time Spent With Patient Time: Total time spent is greater than 50% in coordination of care (as documented) at patient's floor/unit and/or counseling patient: Time with patient: 15 - 24 minutes Quality Stroke Does the patient have a stroke diagnosis?: No VTE Prior VTE?: No VTE Risk Level:: Medical - moderate - high VTE Device Contraindication: N/A - Device Ordered VTE Drug Contraindication: N/A - Med Ordered
[2021-08-21] MEDS: oxyCODONE HCl Immed Release 5 MG TABLET PO (08:55)
[2021-08-21] MEDS: amLODIPine Besylate 5 MG TABLET PO (08:56)
[2021-08-21] MEDS: 0.9 % Sodium Chloride Flush 3 ML SYRINGE IVFLUSH (08:57)
--- NOTE | 2021-08-21 09:21 | PM.DS ---
DS: Providers Provider Date of Service: 08/21/21 Date of admission: 08/17/21 15:09 Primary care physician: Daryn Oseguera MD Consults: 08/17/21 15:12 Consult to Gastroenterology Routine Consulting Provider: Tammy Tao Reason for consultation: abd pain , lft's Has provider been notified: No 08/17/21 15:28 Consult to General Surgery Routine Consulting Provider: Graciela Zapata Reason for consultation: abd pain/elevated lft's Has provider been notified: No DS: Diagnosis Discharge Diagnosis (1) Abdominal pain: Status: Acute DS: Summary Hospital Course Hospital Course: Chief Complaint:? abdominal pain, elevated LFTs 66 y/o M HTN, sarcoidosis involving the lungs, hypothyroidism, hx colonic polyps s/p recent colonoscopy- came to the hospital sec to abd pain- patient had epigastric and? pain below the right upper quadrant area- for 2 days. ? Pain he describes sudden ,sharp- started after he started breakfast sandwich and subsequently pain was located in mostly below right upper quadrant and flank area- pain is not associated with nausea vomiting or diarrhea. ? Denies any fever or chills,? says has constipation. ? He said it was constant ache- now seems to be pain gómez improving but still has mild pain? below the right upper quadrant area. ? After colonoscopy he did not had any pain for a week or so. ? Last BM was yesterday. ?denies any history of alcohol use or salicylate use , ? Lab imaging and reviewed: wbc: 6.4 hct: 14.3/41 platlets:182 lactic acid: normal elevated lft's - AST and ALT elevated as well as bili, alkaline phosphatase is borderline elevated. blood culture pending CT scans of his chest for his sarcoidosis he was told he had gallstones but has never had any issues with them in the past. abd us:IMPRESSION: Abnormal.? Gallbladder hydrops is present, and there appear to be stones in the region of the gallbladder neck. No gallbladder wall edema or pericholecystic fluid. There is reportedly pain over the region of the gallbladder, and pain could be secondary to biliary colic or early onset cholecystitis. Hospital course: 1. Abdominal pain, elevated LFTs, likely biliary colic and likely ssed gallstone, LFTS , MRCP showed no CBD stone. Initial AST on 08/17 was 658 and as of 08/19 82, ALT was 607 and down to 274, Alkphos was 118 and down to 110. He underwent succuesful cystectomy on 08/[address] Manzo. His diet has been advanced and tolerated well. She will be discharged home today. It is expected that LFTs will normalized 2..HTN: To resume home meds 3. Hypothyroidism : continue levothyroxine 4. Ct abdomen also shows?There is an exophytic small fibroid lesion lower pole left kidney which is indeterminate. US showed cysts Time Spent with Patient Time attestation: Total time spent providing and/or coordinating discharge services: Discharge coordination time: Greater than 30 minutes Quality: Stroke Does the patient have a stroke diagnosis?: No Physical Exam Vital Signs: Vital Signs: Last Vital Signs Temp 98.2 F 08/21/21 07:15 Pulse 68 08/21/21 07:15 Resp 18 08/21/21 07:15 BP 133/67 08/21/21 07:15 Pulse Ox 95 08/21/21 07:15 BMI result Body Mass Index 31.4 Const: Other: General: AO X 3, no acute distress Resp: CTA bilateral CVS: S1,S2,RRR GI: +BS, NT, no distention Skin: No rash Neuro: motor grossly intact Psych: appropriate affect DS: Data Data Completed and Pending Pending studies at discharge: Pending at discharge 08/20/21 08:25 Surgical [PTH] Routine Labs on day of discharge: Preliminary micro results at discharge 08/17/21 11:04 Blood Culture - Preliminary Blood - Venous No growth after 48 hours. 08/17/21 10:28 Blood Culture - Preliminary Blood - Venous No growth after 48 hours. Discharge Plan Discharge Anticipated Discharge Date/Time: 08/21/21 09:11 Patient Disposition: Home, Self-Care Discharge Diagnosis: Gallstone, biliary colic, elevated LFTs Referrals: Daryn Oseguera MD [Primary Care Provider] - 1 Week Dakota Manzo MD [Physician] - 2 Weeks Discharge Medications: New oxycodone-acetaminophen [Percocet] 5-325 mg tablet 1 tab PO Q4-6H PRN (Reason: pain, severe) Qty: 30 RF: 0 Continued celecoxib 200 mg capsule 1 cap PO DAILY PRN (Reason: Pain) RF: 0 amlodipine 5 mg tablet 1 tab PO DAILY RF: 0 tamsulosin 0.4 mg capsule 1 cap PO DAILY RF: 0 levothyroxine 50 mcg tablet 1 tab PO DAILY RF: 0 Discharge Orders: Discharge Order (Routine); Ordered 08/21/21 Ordered By: Bill Coronado Diet: advance to usual diet Activity on Discharge: No heavy lifting Stand Alone Forms: Patient Portal Discharge page Activity Restrictions/Additional Instructions: If the incision area is tender, you may apply an ice pack for short intervals (No more than 20 minutes on, followed by at least 20 minutes off). Do not apply heat. Do not use creams, lotions, or topical antibiotics unless instructed to do so by your surgeon. These can cause infection or allergic reaction. Ok to shower 24 hours after your surgery. Remove bandaids in 2 days and replace. You have steri strips (small white cloth strips) covering your incision- these will fall off ~1 week. Follow up in office with Dr. Manzo in 2 weeks. ([phone]) No heavy lifting (>10-20lbs)! Call Your Doctor If: -Your temperature exceeds 101.5? F -You experience excessive pain or swelling -You have an unexpected reaction to medication -You have excessive bleeding -You experience continued vomiting/nausea -Your incision begins to separate -Your incision shows signs of infection such as increased redness, swelling, excessive pain, drainage (light blood or clear fluid is normal) or heat Care Plan Goals: prevent rehospitalization Health Concerns: prevent rehospitalization Plan of Treatment: See instructions above Assessment: as above
--- NOTE | 2021-08-21 09:23 | MHC.CM.PN ---
PT DISCHARGING TODAY HOME SELF-CARE, PT WILL CALL FAMILY FOR TRANSPORT.
[2021-08-21 10:09] LABS: Alanine Aminotransferase 160 U/L (0-40); Albumin Level 3.6 g/dL (3.5-5.0); Alkaline Phosphatase 92 U/L (39-117); Aspartate Amino Transferase 49 U/L (5-37); Bilirubin Direct 0.5 mg/dL (0.0-0.5); Bilirubin Total 1.2 mg/dL (0.0-1.0); Total Protein 6.1 g/dL (6.5-8.0)
[2021-08-21 11:36] VITALS: BP 132/62; PULSE 75; RESP 18; TEMP 36.4; O2SAT 95
== END 2021-08-21 12:42 | disposition home or self-care (01) ==
LOC: HO.ED 13:14 → HO.EDOVER 15:15 → HO.S3 08-18 08:42
PROVIDERS: Physician Assistant; Surgery; Admitting Provider Internal Medicine; Emergency Provider Emergency Medicine; PCP Internal Medicine Endocrinology, Diabetes & Metabolism; Visit Provider Internal Medicine
PROC: 0FT44ZZ Resection of Gallbladder, Percutaneous Endoscopic Approach (ICD-10-PCS; CPT 47562; principal; 2021-08-20 07:30)
DX: R10.31 Right lower quadrant pain (principal); K82.1 Hydrops of gallbladder; K81.0 Acute cholecystitis; R94.5 Abnormal results of liver function studies; I95.9 Hypotension, unspecified; I10 Essential (primary) hypertension; D86.0 Sarcoidosis of lung; Z20.822 Contact with and (suspected) exposure to COVID-19; Z86.010 Personal history of colon polyps; Z79.899 Other long term (current) drug therapy
CPT/HCPCS: 47562; 36415; 74176; 74181; 76705; 76775; 80048; 80053; 80076; 80143; 80179; 81003; 83605; 83690; 85025; 85027; 85610; 86704; 86706; 86709; 86803; 87040; 87340; 87635; 88304; 96361; 96374; 99024; 99218; 99285; J0131; J1100; J1650; J2250; J2405; J3010

== ENCOUNTER → 2021-09-01 10:06 | Outpatient (BNVA) | payer OTHER, SELFPAY | PROVIDERS: PCP Internal Medicine Endocrinology, Diabetes & Metabolism; Visit Provider Surgery ==

== ENCOUNTER 2024-01-06 15:10 | Outpatient (AMB) | payer MEDICARE, SELFPAY ==
[2024-01-06 15:22] VITALS: BP 120/62; PULSE 60; O2SAT 98; BMI 34.0
--- NOTE | 2024-01-06 15:22 | A.OFFVIS_ITS ---
Vital Signs 01/06/24 15:22 Height 6 ft 1 in Weight 257 lb 15.053 oz BMI 34.0 BP 120/62 Blood Pressure Location Lt brachial Position Sitting Pulse 60 Pulse Source Pulse Oximeter Pulse Oximetry (%) 98 Oxygen Delivery Method Room Air Intake Visit Reasons: Sarcoidosis Intake Note: pt is here as a new patient for hx of sarcoid, his previous pulm retired. no symptoms, but couple of weeks ago felt little short of breath. 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 With his diagnosis of pulmonary sarcoidosis.. About 15 years ago when he was walking at [employer] he felt short of breath going up hill . And he had pulmonary evaluation, his primary care physician referred him to Dr. Stewart Anderson ,in [facility] . CT scan of the chest showed mediastinal and hilar lymphadenopathy as well as some parenchymal changes. He was treated with the oral steroids for 3-4 years, probably at low does level. It helped his breathing, but he did put on lot of weight. He was also referred to Dr. Porter of [facility] , was following him up for a few years. Anyway after 4-5 years being on low-dose prednisone he stopped because he was putting on lot of weight. He has remained fairly stable without any acute exacerbations. For a few years he was treated with CPAP for obstructive sleep apnea because he had put on some weight. After he quit prednisone and lost weight he did not have symptoms of sleep apnea so gave up on using the CPAP. This gentleman does have arthritis and has had bilateral hip replacements. He walks around okay still mowing his lawn, with some pain in the hip joints. MORE RECENTLY WHEN HE STARTED MOWING HIS LAWN, HE HAS NOTICE THAT HE GETS SHORT OF BREATH MORE EASILY . THIS IS NOT ASSOCIATED WITH ANY CHEST PAIN, COUGH OR WHEEZING. SHORTNESS OF BREATH DOES SETTLE DOWN HE RESTS. SO HE HAS DECIDED TO COME, FOR ONGOING FOLLOW-UP. It should be noted that he has never smoked. He is being treated for hypothyroidism and also osteoarthritis. He does take trazodone 150 mg at bedtime but only p.r.n.. [facility] Medical History (Updated 01/06/24 @ 16:26 by Alonzo Chambers MD) HAL (obstructive sleep apnea) Dyspnea on exertion Pulmonary sarcoidosis Gallstone Hypertension Sarcoidosis Colon polyp Surgical History Status post laparoscopic cholecystectomy History of laparoscopic cholecystectomy (~2020) History of hip replacement Social History Household Members: Spouse Housing: House Do you presently have visiting nurse or other home services: No Patient Tobacco Use Status: Never used Tobacco Second Hand Smoke Exposure: No service: No Current occupational status: retired Review of Systems Const All systems reviewed & are unremarkable except as noted in HPI and below Eyes Reports no additional complaints ENT Reports no additional complaints Card Denies chest pain, Denies syncope, Denies irregular heart rhythm and Reports dyspnea on exertion Resp Reports as per HPI and Reports dyspnea on exertion GI Reports no additional complaints Reports no additional complaints Musc Reports arthralgias (Knees and back) Skin/Breast Reports system reviewed and no additional complaints, except as documented Neuro Reports no additional complaints and Denies syncope Psych Reports no additional complaints Endo Reports other (Being treated for hypothyroidism) Santana/Lymph Reports no additional complaints Physical Exam Vital Signs: Last Vital Signs Pulse 60 01/06/24 15:22 BP 120/62 01/06/24 15:22 Pulse Ox 98 01/06/24 15:22 Oxygen Delivery Method Room Air 01/06/24 15:22 BMI result Body Mass Index 34.0 Const General: healthy appearing (Except for being overweight), comfortable, no acute distress, alert and awake Orientation/consciousness: patient oriented x3 HEENT Head: Yes normal to inspection General nose exam: No nasal polyps present and No nasal discharge present Face and sinus: Yes sinuses nontender Mouth: oropharynx normal Teeth and gingiva: other (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) Throat: Yes posterior oropharynx normal Eyes General: appearance normal, both eyes and all related structures Neck Neck: Yes normal visual inspection, Yes no lymphadenopathy, Yes trachea midline and Yes no JVD Thyroid: Thyroid normal Chest Chest palpation & inspection: normal inspection of the chest, normal palpation of entire chest wall and no tenderness Resp Effort & Inspection: normal respiratory effort Auscultation: clear to auscultation bilaterally, no crackles and no wheezes Cardio Palpation: normal PMI Rate: regular rate Rhythm: regular rhythm Heart sounds: no gallops and no murmurs Peripheral pulses: Peripheral pulses 2+ throughout GI Palpation (GI): Soft to palpation, nontender, No hepatosplenomegaly present and no masses Auscultation: normal bowel sounds Back/Spine/Pelvis Thoracic/Lumbar Spine: thoracic and lumbar spine normal to inspection Skin General skin exam: no rashes or lesions noted Neuro General: patient oriented x3 and no focal motor deficits Cranial nerves: Yes CN's II-XII intact bilaterally Extrem General: Yes normal to inspection, Yes no clubbing, cyanosis or edema and Yes no calf tenderness Psych Appearance: grossly normal and well kempt Speech and movement: Normal speech and movement present Results Reviewed Results Reviewed: I reviewed the report of his CT scan of the chest on 03/23/2019, performed at [facility] in [place]. It showed bilateral Hilar prominence, and also bilateral patchy parenchymal abnormalities/scarring Assessment & Plan Assessment & Plan (1) Pulmonary sarcoidosis: Comment: History of pulmonary sarcoidosis, initially diagnosed about 15 years ago. In the past has been treated with systemic steroids for 4-5 years. According to him it has been fairly stable, and he has been on no treatment for the last 4-5 years. 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 Code(s): D86.0 - Sarcoidosis of lung Category: Medical Plan: I discussed with him and told him that I think it will be prudent to do a CT scan of the chest again for baseline. Will also do pulmonary function test, and then decide if he needs any active treatment. (2) Dyspnea on exertion: Comment: Recent onset of dyspnea on exertion, it may be due to pulmonary sarcoidosis, Or may be due to combination of being overweight, and deconditioning. Code(s): R06.09 - Other forms of dyspnea Category: Medical Plan: COMPLETE PULMONARY FUNCTION TEST AND THEN DECIDE IF HE NEEDS ANY ACTIVE TREATMENT. (3) HAL (obstructive sleep apnea): Comment: HE HAS PREVIOUS HISTORY OF OBSTRUCTIVE SLEEP APNEA AND WAS TREATED WITH CPAP FOR 2 OR 3 YEARS. THIS HAPPENED WHEN HE HAD PUT ON WEIGHT DUE TO TAKING ORAL STEROIDS. MORE THAN 5 YEARS AGO WHEN HE QUIT TAKING PREDNISONE HE LOST WEIGHT AND HIS SYMPTOMS RESOLVED SO HE GAVE UP ON USING THE CPAP. Code(s): G47.33 - Obstructive sleep apnea (adult) (pediatric) Category: Medical Plan: CURRENTLY DOES NOT NEED ANY ACTIVE TREATMENT. HE SHOULD WATCH HIS WEIGHT. AND TRY TO KEEP IT UNDER CONTROL. Medications: Discontinued oxycodone-acetaminophen 5-325 mg (Percocet) Discontinued Reason: Patient Completed Course 1 tab PO Q4-6H PRN 30 tabs 0RF pain, severe Coding Level of Care Code New Pt Level 4 (30303) Diagnoses Pulmonary sarcoidosis D86.0 Dyspnea on exertion R06.09 HAL (obstructive sleep apnea) G47.33
== END 2024-01-06 15:57 | disposition home or self-care (01) ==
PROVIDERS: PCP Internal Medicine Endocrinology, Diabetes & Metabolism; Referring Provider Internal Medicine Endocrinology, Diabetes & Metabolism; Visit Provider Internal Medicine
DX: D86.0 Sarcoidosis of lung (principal); R06.09 Other forms of dyspnea; G47.33 Obstructive sleep apnea (adult) (pediatric)
CPT/HCPCS: 99204

== ENCOUNTER → 2024-01-06 15:10 | Outpatient (BNVA) | payer MEDICARE, SELFPAY | PROVIDERS: PCP Internal Medicine Endocrinology, Diabetes & Metabolism; Referring Provider Internal Medicine Endocrinology, Diabetes & Metabolism; Visit Provider Internal Medicine | DX: D86.0 Sarcoidosis of lung (principal); G47.33 Obstructive sleep apnea (adult) (pediatric); R06.09 Other forms of dyspnea | CPT/HCPCS: 99202 ==

== ENCOUNTER 2024-01-08 | Outpatient (REF) | payer MEDICARE, SELFPAY ==
[2024-01-08 10:34] VITALS: PULSE 62; RESP 16; O2SAT 99
--- NOTE | 2024-01-08 13:00 | PFT_ITS ---
Flows: FEV1: 99 % of predicted at 3.53 L FVC: 112 % of predicted at 5.25 L FEV1/FVC: 67 % Bronchodilator response: Present in small to medium airways only Volumes: Total lung capacity: 102 % of predicted at 7.85 L Residual volume: 85 % of predicted at 2.19 L Slow vital capacity: 111 % of predicted at 5.65 L Expiratory reserve volume: 97 % of predicted at 1.35 L Diffusion capacity: Normal Impression: Mild obstructive ventilatory defect with bronchodilator response in small to medium airways only. MTDD
== END 2024-01-08 00:01 | disposition home or self-care (01) ==
LOC: HO.RESP
PROVIDERS: PCP Internal Medicine Endocrinology, Diabetes & Metabolism; Visit Provider Internal Medicine
DX: D86.0 Sarcoidosis of lung (principal); R06.09 Other forms of dyspnea
CPT/HCPCS: 94010; 94640; 94727; 94729

== ENCOUNTER 2024-02-04 15:22 | Outpatient (REF) | payer MEDICARE, SELFPAY ==
--- NOTE | ~2024-02-04 | CT_ITS ---
EXAMINATION: CT CHEST WITHOUT CONTRAST CLINICAL INFORMATION: Pulmonary sarcoidosis, hilar lymphadenopathy and parenchymal scarring COMPARISON: 08/17/2021 abdomen and pelvis. TECHNIQUE: Multidetector volumetric CT imaging of the chest was done. Axial MIP volume rendering provided. Sagittal and coronal reformatted images were obtained. This CT examination was performed using dose optimization techniques as appropriate, variously including the following: *Automated exposure control *Adjustment of mA and/or kV according to patient size (this includes techniques or standardized protocols for targeted exams where dose is matched to indication/reason for exam; i.e. extremities or head) *Use of iterative reconstruction technique DLP: 243 mGy-cm FINDINGS: TURN DOWN ATTENDANT: Prominent superior mediastinum. Cholecystectomy clips. LUNGS: Trachea and bronchi are patent. Lingular and right upper lobe atelectasis. Bilateral lower lobes scarring/atelectasis stable from [address] No consolidations or groundglass opacities. 2 adjacent 2-3 mm RUL nodules, sagittal 98/139. 3 mm RUL nodule with shaggy images, 82/229. Interval 2 mm RLL subpleural granuloma. Upper medial RUL granuloma also seen Perivascular increased markings KAMILLA, axial 77/229, and more anteriorly on sagittal 52/139. MEDIASTINUM: Enlarged thyroid with substernal extension and with possible 1.1 cm right thyroid nodule. No pathologic lymphadenopathy. Heart is not enlarged. No pericardial effusion. Atherosclerotic calcifications nonaneurysmal aorta. Nonenlarged pulmonary arteries. CORONARY ARTERY CALCIFICATION: Mild PLEURA: There is no pleural effusion. No pleural mass or thickening. AXILLA: No lymphadenopathy. UPPER ABDOMEN: Small to characterize right hepatic hypodensity, likely cyst. Status post cholecystectomy. OSSEOUS STRUCTURES: Unremarkable. CT/CT chest wo IV con IMPRESSION: No pathologic mediastinal, hilar, right paratracheal lymphadenopathy. Nonspecific bilateral perivascular pulmonary increased markings. Small RUL pulmonary nodules. Consider follow-up CT in 6 months. Enlarged heterogeneous substernal thyroid with possible right thyroid lesion. Consider thyroid ultrasound.
== END 2024-02-04 15:23 | disposition home or self-care (01) ==
LOC: HO.CT 15:22
PROVIDERS: PCP Internal Medicine Endocrinology, Diabetes & Metabolism; Visit Provider Internal Medicine
DX: D86.9 Sarcoidosis, unspecified (principal); R06.09 Other forms of dyspnea
CPT/HCPCS: 71250

== ENCOUNTER 2024-02-08 15:18 | Outpatient (AMB) | payer MEDICARE, SELFPAY ==
[2024-02-08 15:27] VITALS: BP 110/70; PULSE 63; O2SAT 98; BMI 34.0
--- NOTE | 2024-02-08 15:27 | A.OFFVIS_ITS ---
Vital Signs 02/08/24 15:27 Height 6 ft 1 in Weight 257 lb 15.053 oz BMI 34.0 BP 110/70 Blood Pressure Location Lt brachial Position Sitting Pulse 63 Pulse Source Pulse Oximeter Pulse Oximetry (%) 98 Oxygen Delivery Method Room Air Intake Visit Reasons: Sarcoidosis/PFT CT Follow Up Intake Note: pt is here for follow up for pft and ct scan results and doing good today Allergies No Known Allergies Allergy (Verified 02/08/24 15:36) Medication List - Last Reconciled 02/08/24 by Alonzo Chambers MD amlodipine 1 tab PO DAILY celecoxib 1 cap PO DAILY PRN cholecalciferol (vitamin D3) 25 mcg PO DAILY levothyroxine 75 mcg PO DAILY tamsulosin 0.8 mg PO DAILY trazodone 150 mg PO BEDTIME PRN Do you need a note to return to daycare/school/sports/work: No HPI HPI Sarcoidosis/PFT CT Follow Up: Details: ERI IS 68 YEARS OLD GENTLEMAN, MODERATELY OBESE, WITH LOT OF ARTHRITIS OF HIS MAJOR JOINTS. HAS HISTORY OF PULMONARY SARCOIDOSIS SINCE MANY YEARS AGO. HE CAME TO SEE ME LAST MONTH, AND NOW COMES FOR FOLLOW-UP AFTER THE INITIAL W ORKUP. HIS LOCOMOTION. IS SLOW BECAUSE OF ARTHRITIS OF THE KNEES SO HE DOES NOT HAVE ANY SIGNIFICANT SHORTNESS OF BREATH ON WALKING. AROUND OR AT REST HE DENIES. ANY COUGH OR WHEEZING HE DOES HAVE PAST HISTORY OF OBSTRUCTIVE SLEEP APNEA BUT AFTER HE LOST SOME WEIGHT HIS SYMPTOMS RESOLVED AND HE DOES NOT USE CPAP ANYMORE. [facility] Medical History (Updated 02/08/24 @ 15:55 by Alonzo Chambers MD) Pulmonary nodule seen on imaging study HAL (obstructive sleep apnea) Dyspnea on exertion Pulmonary sarcoidosis Gallstone Hypertension Sarcoidosis Colon polyp Surgical History Status post laparoscopic cholecystectomy History of laparoscopic cholecystectomy (~2020) History of hip replacement Social History Household Members: Spouse Housing: House Do you presently have visiting nurse or other home services: No Patient Tobacco Use Status: Never used Tobacco Second Hand Smoke Exposure: No service: No Current occupational status: retired Review of Systems Const All systems reviewed & are unremarkable except as noted in HPI and below Eyes Reports no additional complaints ENT Reports no additional complaints Card Denies chest pain, Denies syncope, Denies irregular heart rhythm and Reports dyspnea on exertion Resp Reports as per HPI and Reports dyspnea on exertion GI Reports no additional complaints Reports no additional complaints Musc Reports arthralgias (Knees and back) Skin/Breast Reports system reviewed and no additional complaints, except as documented Neuro Reports no additional complaints and Denies syncope Psych Reports no additional complaints Endo Reports other (Being treated for hypothyroidism) Santana/Lymph Reports no additional complaints Physical Exam Vital Signs: Last Vital Signs Pulse 63 02/08/24 15:27 BP 110/70 02/08/24 15:27 Pulse Ox 98 02/08/24 15:27 Oxygen Delivery Method Room Air 02/08/24 15:27 BMI result Body Mass Index 34.0 Const General: healthy appearing (Except for being overweight), comfortable, no acute distress, alert and awake Orientation/consciousness: patient oriented x3 HEENT Head: Yes normal to inspection General nose exam: No nasal polyps present and No nasal discharge present Face and sinus: Yes sinuses nontender Mouth: oropharynx normal Teeth and gingiva: other (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) Throat: Yes posterior oropharynx normal Eyes General: appearance normal, both eyes and all related structures Neck Neck: Yes normal visual inspection, Yes no lymphadenopathy, Yes trachea midline and Yes no JVD Thyroid: Thyroid normal Chest Chest palpation & inspection: normal inspection of the chest, normal palpation of entire chest wall and no tenderness Resp Effort & Inspection: normal respiratory effort Auscultation: clear to auscultation bilaterally, no crackles and no wheezes Cardio Palpation: normal PMI Rate: regular rate Rhythm: regular rhythm Heart sounds: no gallops and no murmurs Peripheral pulses: Peripheral pulses 2+ throughout GI Palpation (GI): Soft to palpation, nontender, No hepatosplenomegaly present and no masses Auscultation: normal bowel sounds Back/Spine/Pelvis Thoracic/Lumbar Spine: thoracic and lumbar spine normal to inspection Skin General skin exam: no rashes or lesions noted Neuro General: patient oriented x3 and no focal motor deficits Cranial nerves: Yes CN's II-XII intact bilaterally Extrem General: Yes normal to inspection, Yes no clubbing, cyanosis or edema and Yes no calf tenderness Psych Appearance: grossly normal and well kempt Speech and movement: Normal speech and movement present Results Reviewed Results Reviewed: PULMONARY FUNCTION TEST. A VERY MILD DEGREE OF OBSTRUCTIVE AIRWAY DISORDER WITH GOOD RESPONSE TO BRONCHODILATOR THERAPY. CT SCAN OF CHEST : NO SIGNIFICANT MEDIASTINAL OR HILAR LYMPHADENOPATHY WAS NOTED. TINY RIGHT PARATRACHEAL NODULES NOTED . Assessment & Plan Assessment & Plan (1) Pulmonary sarcoidosis: Comment: History of pulmonary sarcoidosis, initially diagnosed about 15 years ago. In the past has been treated with systemic steroids for 4-5 years. According to him it has been fairly stable, and he has been on no treatment for the last 4-5 years. Recently he has experienced some dyspnea on exertion, The CT scan of the chest, does not show any significant mediastinal or hilar lymphadenopathy. At this point I do not think he has any active pulmonary sarcoidosis Code(s): D86.0 - Sarcoidosis of lung Category: Medical Plan: I explained to him all the findings and he is reassured that there is no active pulmonary sarcoidosis at this time. (2) Dyspnea on exertion: Comment: Recent onset of dyspnea on exertion, it is very mild and he does not have history of any wheezing or cough. Probably due to deconditioning. Pulmonary function test shows very minimal degree of obstructive airway disorder, Discussed with the patient and he is not too concerned about this shortness of breath. Code(s): R06.09 - Other forms of dyspnea Category: Medical Plan: As the patient has no significant symptoms he does not need to use any bronchodilator inhaler. (3) HAL (obstructive sleep apnea): Comment: HE HAS PREVIOUS HISTORY OF OBSTRUCTIVE SLEEP APNEA AND WAS TREATED WITH CPAP FOR 2 OR 3 YEARS. THIS HAPPENED WHEN HE HAD PUT ON WEIGHT DUE TO TAKING ORAL STEROIDS. MORE THAN 5 YEARS AGO WHEN HE QUIT TAKING PREDNISONE HE LOST WEIGHT AND HIS SYMPTOMS RESOLVED SO HE GAVE UP ON USING THE CPAP. Code(s): G47.33 - Obstructive sleep apnea (adult) (pediatric) Category: Medical Plan: At present he denies any symptoms of sleep apnea. He was advised to keep his weight down as much as he can. Does not need any treatment at this time. (4) Pulmonary nodule seen on imaging study: Comment: Small RUL pulmonary nodules 2-3 mm, Rt. paratracheal Consider follow-up CT in 6 months. Enlarged heterogeneous substernal thyroid with possible right thyroid lesion. Consider thyroid ultrasound. Code(s): R91.1 - Solitary pulmonary nodule Category: Medical Plan: Explained the findings to the patient. Reassured that he does not have any finding suggesting active pulmonary sarcoidosis. Nonspecific right paratracheal lymph nodes which are small 2-3 mm. To be on the safe side we may do a repeat CT scan after 6 months And he would like to have it done . Orders: Orders CT chest wo IV con 5 Months D86.0 - Sarcoidosis of lung, R91.1 - Solitary pulmonary nodule Coding Level of Care Code Est Pt Level 3 (42045) Diagnoses Pulmonary sarcoidosis D86.0 Dyspnea on exertion R06.09 HAL (obstructive sleep apnea) G47.33 Pulmonary nodule seen on imaging study R91.1
== END 2024-02-08 15:45 | disposition home or self-care (01) ==
PROVIDERS: PCP Internal Medicine Endocrinology, Diabetes & Metabolism; Visit Provider Internal Medicine
DX: D86.0 Sarcoidosis of lung (principal); R06.09 Other forms of dyspnea; G47.33 Obstructive sleep apnea (adult) (pediatric); R91.1 Solitary pulmonary nodule
CPT/HCPCS: 99213

== ENCOUNTER → 2024-02-08 15:18 | Outpatient (BNVA) | payer MEDICARE, SELFPAY | PROVIDERS: PCP Internal Medicine Endocrinology, Diabetes & Metabolism; Visit Provider Internal Medicine | DX: D86.0 Sarcoidosis of lung (principal); R06.09 Other forms of dyspnea; G47.33 Obstructive sleep apnea (adult) (pediatric); R91.1 Solitary pulmonary nodule | CPT/HCPCS: 99212 ==

== ENCOUNTER 2024-08-01 12:35 | Outpatient (REF) | payer MEDICARE, SELFPAY ==
--- OUTSIDE RECORDS SUMMARY | 2024-08-08 13:50 | XMS_ITS | Continuity of Care Document ---
Author Organization [facility] Address [address] [place] [address] anu, [address] [place] [address]- Care Team Providers Care Stenotype Machine Operator Name Role Phone Megha Beasley Primary Care Physician Encounter [facility] Date(s): 07/04/24 - 08/03/24 [facility] [address] [place] [address] Drive [address] [place], [place] [address] Encounter Type: Triage Allergies, Adverse Reactions, Alerts No Known Allergies Medications amLODIPine 5 mg oral tablet 0 Refills, Maintenance, 06/15/24 8:58:00 AM EDT, Partial fill upon patient request if the prescription is for a schedule II opioid drug. Start Date: 06/15/24 Status: Ordered Repeat number: 1 celecoxib 200 mg oral capsule 0 Refills, Maintenance, 06/15/24 8:58:00 AM EDT, Partial fill upon patient request if the prescription is for a schedule II opioid drug. Start Date: 06/15/24 Status: Ordered Repeat number: 1 Synthroid 0.05 mg oral tablet 0 Refills, Maintenance, 06/15/24 8:58:00 AM EDT, Partial fill upon patient request if the prescription is for a schedule II opioid drug. Start Date: 06/15/24 Status: Ordered Repeat number: 1 tamsulosin 0.4 mg oral capsule 0.4 mg, 1, capsule, By Mouth, Daily at bedtime, Refills 0, Maintenance, 06/15/24 8:57:00 AM EDT, Partial fill upon patient request if the prescription is for a schedule II opioid drug. Start Date: 06/15/24 Status: Ordered Repeat number: 1 tiZANidine 4 mg oral tablet 4 mg, 1, tablet, By Mouth, Every 8 hours, # 42 tablet, Refills 0, Tot. Refills 0, Maintenance, 06/28/24 3:05:00 PM EDT, Route to Pharmacy Electronically, [facility], Partial fill upon patient request if the prescription is for a schedule II opioid drug., 185, cm, 06/28/24 10:56:00 EDT, Height, 117, kg, 06/26/24 17:13:00 EDT, Dry Weight Start Date: 06/28/24 Stop Date: 07/12/24 Status: Ordered Quantity: 42.0 Unit: tablet Repeat number: 1 Trazodone By Mouth, 0 Refills, Maintenance, 06/15/24 8:59:00 AM EDT, Partial fill upon patient request if theprescription is for a schedule II opioid drug. Start Date: 06/15/24 Status: Ordered Repeat number: 1 Vitamin D3 1000 intl units oral capsule 1 capsule = 25 mcg, By Mouth, Daily, 0 Refills, Maintenance, 06/15/24 8:59:00 AM EDT, Partial fill upon patient request if the prescription is for a schedule II opioid drug. Start Date: 06/15/24 Status: Ordered Repeat number: 1 Problem List Condition Confirmation Course Effective Dates Status Health St atus Informant Hypertension Confirmed Active Hypothyroid Confirmed Active BPH associated with nocturia Confirmed Active Obese class I Confirmed Active Sarcoidosis Confirmed Active Social History Social History Type Response Smoking Status Never (less than 100 in lifetime) entered on: 06/15/24 Sex Sex Representation Male (finding) Patient Care team information Care Team Personnel Name: Megha Beasley Position: Reference Physician Member Role: PCP Address: [address] [place] [address] [address] [facility] [address]- Telecom: Care Team Related Persons Name: ABENA MOSLEY Insurance Providers Guarantor name: ERI MOSLEY Health Plan Information #: 1 Payer: NA Member Number: NA Policy Number: NA Group Number: NA Health Plan Information #: 2 Payer: MEDICARE PART B OUTPT Member Number: NA Policy Number: NA Group Number: NA
--- OUTSIDE RECORDS SUMMARY | 2024-08-08 13:50 | XMS_ITS | Continuity of Care Document ---
Author Organization [facility] Address [address] [place] [address] anu, [address] [place] [address]- Care Team Providers Care Mica Splitter Name Role Phone Megha Beasley Primary Care Physician [phone] [id number] Date(s): 07/13/24 - 07/20/24 [facility] [address] [place] [address] Drive [address] [place], [place] [address] Attending Physician: Lizbeth Orozco MD Referring Physician: Megha Beasley Encounter Type: Office Visit Allergies, Adverse Reactions, Alerts No Known Allergies [...] 3:05:00 PM EDT, Route to Pharmacy Electronically, [facility], Partial fill upon patient request if [...] class I Confirmed Active Sarcoidosis Confirmed Active Vital Signs Most recent to oldest [Reference Range]: 1 Height 185 cm (07/13/24 10:18 AM) Weight 117 kg (07/13/24 10:18 AM) Body Mass Index [18.5-24.99 kg/m2] 34.19 kg/m2 *>HHI* (07/13/24 10:18 AM) Social History Social History Type Response Smoking Status Never (less than 100 in lifetime) entered on: 06/15/24 Sex Sex Representation Male (finding) Patient Care team information Care Team Personnel Name: Megha Beasley Position: Reference Physician Member Role: PCP Address: [address] [place] [address] [address] [facility] [address]- Telecom: Care Team Related Persons Name: ABENA MOSLEY Insurance Providers Guarantor name: ERI MOSLEY Health Plan Information #: 2 Payer: MEDICARE PART B OUTPT Member Number: [id number] Policy Number: NA Group Number: [place] Health Plan Information #: 1 Payer: NA Member Number: [id number] Policy Number: NA Group Number: NA
--- OUTSIDE RECORDS SUMMARY | 2024-08-08 13:50 | XMS_ITS | Continuity of Care Document ---
Author Organization [facility] Address [address] [place] [address] anu, [address] [place] [address]- Care Team Providers Care Ceiling Cleaner Name Role Phone Megha Beasley Primary Care Physician [place] [facility] [place](s): 06/16/24 - 07/16/24 [facility] [address] [place] [address] [address] [place], [place] [address] Encounter Type: Triage Allergies, Adverse Reactions, [...] 3:05:00 PM EDT, Route to Pharmacy Electronically, [facility], Partial fill upon patient request if [...] Position: Reference Physician Member Role: PCP Address: [address] [place] [address] [address] [facility] [place] [address]- Telecom: Care Team Related Persons Name: ABENA MOSLEY Insurance Providers Guarantor name: ERI MOSLEY Health Plan Information #: 1 Payer: NA Member Number: NA Policy Number: NA Group Number: NA Health Plan Information #: 2 Payer: MEDICARE PART B OUTPT Member Number: NA Policy Number: NA Group Number: NA
--- OUTSIDE RECORDS SUMMARY | 2024-08-08 13:51 | XMS_ITS | Continuity of Care Document ---
Author Organization [facility] Address [address] [place] [address]- Care Team Providers Care Dermatological Surgeon Name Role Phone Megha Beasley Primary Care Physician [phone] En[place] [facility] [place] [facility] [place](s): 06/21/24 - 07/21/24 [facility] [address] [place], [place] [address] Attending Physician: Isi Hogan Admitting Physician: Isi Hogan Referring Physician: Isi Hogan Encounter Type: Triage Allergies, Adverse Reactions, Alerts [...] 3:05:00 PM EDT, Route to Pharmacy Electronically, [facility], Partial fill upon patient [...] Position: Reference Physician Member Role: PCP Address: [address] [place] [address] [address] [facility] [place] [address]- Telecom: Care Team Related Persons Name: ABENA MOSLEY Insurance Providers Guarantor name: ERI MOSLEY Health Plan Information #: 1 Payer: NA Member Number: NA Policy Number: NA Group Number: NA Health Plan Information #: 2 Payer: MEDICARE PART B OUTPT Member Number: NA Policy Number: NA Group Number: NA
== END 2024-08-01 12:36 | disposition home or self-care (01) ==
LOC: HO.CT 12:35
PROVIDERS: PCP Internal Medicine Endocrinology, Diabetes & Metabolism; Visit Provider Internal Medicine
DX: R91.1 Solitary pulmonary nodule (principal); D86.0 Sarcoidosis of lung
CPT/HCPCS: 71250

== ENCOUNTER → 2024-08-01 12:37 | Outpatient (BNV) | payer MEDICARE, SELFPAY | PROVIDERS: PCP Internal Medicine Endocrinology, Diabetes & Metabolism; Visit Provider Radiology Diagnostic Radiology | DX: R91.8 Other nonspecific abnormal finding of lung field (principal) | CPT/HCPCS: 71250 ==

== ENCOUNTER 2024-08-16 09:47 | Outpatient (AMB) | payer MEDICARE, SELFPAY ==
--- OUTSIDE RECORDS SUMMARY | 2024-08-16 09:50 | XMS_ITS | Continuity of Care Document ---
Author Organization [facility] Address [address] [place] [address] anu, [address] [place] [address]- Care Team Providers Care Research Assistant Member Name Role Phone Megha Beasley Primary Care Physician Encounter [facility] [place] Date(s): 07/13/24 - 08/12/24 [facility] [address] [place] [address] Drive [address] [place], [place] [address] Attending Physician: Isi Hogan Admitting Physician: Isi [...] 3:05:00 PM EDT, Route to Pharmacy Electronically, [facility], Partial fill upon patient request if [...] Position: Reference Physician Member Role: PCP Address: [address] [place] [address] [address] [facility] [place] [address]- Telecom: Care Team Related Persons Name: ABENA MOSLEY Insurance Providers Guarantor name: ERI MOSLEY Health Plan Information #: 1 Payer: NA Member Number: NA Policy Number: NA Group Number: NA Health Plan Information #: 2 Payer: MEDICARE PART B OUTPT Member Number: NA Policy Number: NA Group Number: NA
--- NOTE | 2024-08-16 09:59 | MHC.OFFVIS ---
Vital Signs 08/16/24 10:00 Height 6 ft 1 in Weight 259 lb 0.69 oz BMI 34.2 BP 112/64 Blood Pressure Location Lt brachial Position Sitting Pulse 81 Pulse Source Pulse Oximeter Pulse Oximetry (%) 99 Oxygen Delivery Method Room Air Intake Visit Reasons: Sarcoidosis/CT Follow Up Intake Note: pt is here for follow up and states he is feeling good, no issues with breathing. Tube Former Operator Required: No Allergies No Known Allergies Allergy (Verified 08/16/24 10:05) Medication List - Last Reconciled 08/16/24 by Alonzo Chambers MD amlodipine 1 tab PO DAILY cholecalciferol (vitamin D3) 25 mcg PO DAILY levothyroxine 75 mcg PO DAILY tamsulosin 0.8 mg PO DAILY trazodone 150 mg PO BEDTIME PRN Do you need a note to return to daycare/school/sports/work: No HPI HPI Sarcoidosis/CT Follow Up: Details: 69 years old very pleasant gentleman comes after 6 months for follow-up. He carries the diagnosis of pulmonary sarcoidosis, which has never been active, and he has not required any treatment. He does not complain of any excessive cough wheezing or shortness of breath. He has previous history of obstructive sleep apnea but since he lost some weight it has resolved. Now he claims to be sleeping well without any sleep disturbance. Is main issue is lot of degenerative arthritis, has had spine surgery, and now he is dealing with arthritis of the knees which slows down his walking. He does not need to use any bronchodilator inhaler. [facility] Medical History Pulmonary nodule seen on imaging study HAL (obstructive sleep apnea) Dyspnea on exertion Pulmonary sarcoidosis Gallstone Hypertension Sarcoidosis Colon polyp Surgical History Status post laparoscopic cholecystectomy History of laparoscopic cholecystectomy (~2020) History of hip replacement Social History Household Members: Spouse Housing: House Do you presently have visiting nurse or other home services: No Patient Tobacco Use Status: Never used Tobacco Second Hand Smoke Exposure: No service: No Current occupational status: retired Review of Systems Const All systems reviewed & are unremarkable except as noted in HPI and below Eyes Reports no additional complaints ENT Reports no additional complaints Card Denies chest pain, Denies syncope, Denies irregular heart rhythm and Reports dyspnea on exertion Resp Reports as per HPI and Reports dyspnea on exertion GI Reports no additional complaints Reports no additional complaints Musc Reports arthralgias (Knees and back) Skin/Breast Reports system reviewed and no additional complaints, except as documented Neuro Reports no additional complaints and Denies syncope Psych Reports no additional complaints Endo Reports other (Being treated for hypothyroidism) Santana/Lymph Reports no additional complaints Physical Exam Vital Signs: Last Vital Signs Pulse 81 08/16/24 10:00 BP 112/64 08/16/24 10:00 Pulse Ox 99 08/16/24 10:00 Oxygen Delivery Method Room Air 08/16/24 10:00 BMI result Body Mass Index 34.2 Const General: healthy appearing (Except for being overweight), comfortable, no acute distress, alert and awake Orientation/consciousness: patient oriented x3 HEENT Head: Yes normal to inspection General nose exam: No nasal polyps present and No nasal discharge present Face and sinus: Yes sinuses nontender Mouth: oropharynx normal Teeth and gingiva: other (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) Throat: Yes posterior oropharynx normal Eyes General: appearance normal, both eyes and all related structures Neck Neck: Yes normal visual inspection, Yes no lymphadenopathy, Yes trachea midline and Yes no JVD Thyroid: Thyroid normal Chest Chest palpation & inspection: normal inspection of the chest, normal palpation of entire chest wall and no tenderness Resp Effort & Inspection: normal respiratory effort Auscultation: clear to auscultation bilaterally, no crackles and no wheezes Cardio Palpation: normal PMI Rate: regular rate Rhythm: regular rhythm Heart sounds: no gallops and no murmurs Peripheral pulses: Peripheral pulses 2+ throughout GI Palpation (GI): Soft to palpation, nontender, No hepatosplenomegaly present and no masses Auscultation: normal bowel sounds Back/Spine/Pelvis Thoracic/Lumbar Spine: thoracic and lumbar spine normal to inspection Skin General skin exam: no rashes or lesions noted Neuro General: patient oriented x3 and no focal motor deficits Cranial nerves: Yes CN's II-XII intact bilaterally Extrem General: Yes normal to inspection, Yes no clubbing, cyanosis or edema and Yes no calf tenderness Psych Appearance: grossly normal and well kempt Speech and movement: Normal speech and movement present Results Reviewed Results Reviewed: And a repeat CT scan on 08/01, which has not been officially read. I have reviewed the CT scan, and do not see any new changes. Assessment & Plan Assessment & Plan (1) Pulmonary sarcoidosis: Comment: History of pulmonary sarcoidosis, initially diagnosed about 15 years ago. In the past has been treated with systemic steroids for 4-5 years. According to him it has been fairly stable, and he has been on no treatment for the last 4-5 years. Recently he has experienced some dyspnea on exertion, The CT scan of the chest, does not show any significant mediastinal or hilar lymphadenopathy. At this point I do not think he has any active pulmonary sarcoidosis. Code(s): D86.0 - Sarcoidosis of lung Category: Medical Plan: No need of using any steroids or other pulmonary meds at this time. Patient is advised to contact the office if he starts having any active symptoms. (2) HAL (obstructive sleep apnea): Comment: HE HAS PREVIOUS HISTORY OF OBSTRUCTIVE SLEEP APNEA AND WAS TREATED WITH CPAP FOR 2 OR 3 YEARS. THIS HAPPENED WHEN HE HAD PUT ON WEIGHT DUE TO TAKING ORAL STEROIDS. MORE THAN 5 YEARS AGO WHEN HE QUIT TAKING PREDNISONE HE LOST WEIGHT AND HIS SYMPTOMS RESOLVED SO HE GAVE UP ON USING THE CPAP. HE DENIES ANY ACTIVE SYMPTOMS SUCH SNORING OR DIFFICULTY AND SLEEPING, MOST OF THE DIFFICULTY IN SLEEPING IS DUE TO HIS BACK PAIN AND ARTHRITIS IN MAJOR JOINTS Code(s): G47.33 - Obstructive sleep apnea (adult) (pediatric) Category: Medical Plan: ADVISED TO WATCH WEIGHT . ALWAYS TRY TO SLEEP IN LATERAL POSITION. (3) Pulmonary nodule seen on imaging study: Comment: Small RUL pulmonary nodules 2-3 mm, Rt. paratracheal CT scan has been repeated for 6 months interval follow-up. Official reading is pending. I do not see any significant interval change Code(s): R91.1 - Solitary pulmonary nodule Category: Medical Plan: Patient can be followed up on a yearly basis with a repeat CT scan. Coding Level of Care Code Est Pt Level 3 (20497) Diagnoses Pulmonary sarcoidosis D86.0 HAL (obstructive sleep apnea) G47.33 Pulmonary nodule seen on imaging study R91.1
[2024-08-16 10:00] VITALS: BP 112/64; PULSE 81; O2SAT 99; BMI 34.2
== END 2024-08-16 13:15 | disposition home or self-care (01) ==
PROVIDERS: PCP Physician Assistant; Visit Provider Internal Medicine
DX: D86.0 Sarcoidosis of lung (principal); G47.33 Obstructive sleep apnea (adult) (pediatric); R91.1 Solitary pulmonary nodule
CPT/HCPCS: 99213

== ENCOUNTER → 2024-08-16 09:47 | Outpatient (BNVA) | payer MEDICARE, SELFPAY | PROVIDERS: PCP Internal Medicine Endocrinology, Diabetes & Metabolism; Visit Provider Internal Medicine | DX: D86.0 Sarcoidosis of lung (principal); R91.1 Solitary pulmonary nodule; G47.33 Obstructive sleep apnea (adult) (pediatric) | CPT/HCPCS: 99212 ==

== ENCOUNTER 2025-08-14 13:48 | Outpatient (AMB) | payer MEDICARE, SELFPAY ==
--- NOTE | 2025-08-14 14:00 | MHC.OFFVIS ---
Vital Signs 08/14/25 14:01 Height 6 ft 1 in Weight 238 lb BMI 31.4 BP 108/70 Blood Pressure Location Lt brachial Position Sitting Pulse 55 Pulse Source Pulse Oximeter Pulse Oximetry (%) 98 Oxygen Delivery Method Room Air Intake Visit Reasons: Sarcoidosis Intake Note: pt is here for follow up and states only occasional cough, was sick about a month ago. Telemetry Tech Required: No Curator [employer]: [employer]ator [employer] offered & declined Allergies No Known Allergies Allergy (Verified 08/14/25 14:51) Medication List - Last Reconciled 08/14/25 by Alonzo Chambers MD [id number]-[id number]-mefolate 600-2-6 mg (Cerefolin Brain Wellness) 1 tab PO BEDTIME amlodipine 1 tab PO DAILY B-complex with vitamin C 1 cap PO DAILY celecoxib (Celebrex) 200 mg PO DAILY cholecalciferol (vitamin D3) 25 mcg PO DAILY finasteride 5 mg PO DAILY levothyroxine 75 mcg PO DAILY multivitamin (Daily Multi-Vitamin tablet) 1 tab PO DAILY psyllium husk (Metamucil) 0.4 grams PO BEDTIME tamsulosin 0.8 mg PO DAILY trazodone 150 mg PO BEDTIME PRN Do you need a note to return to daycare/school/sports/work: No HPI HPI Sarcoidosis: Details: ERI IS 70 YEARS OLD GENTLEMAN. ( LIVES ON [facility] ) IS HERE FOR YEARLY FOLLOW-UP. FAR CHRONIC PULMONARY SARCOIDOSIS IS CONCERNED HE DOES NOT HAVE ANY ACTIVE SYMPTOMS. HIS SARCOIDOSIS IS MAINLY IN THE FORM OF MULTIPLE SMALL ( 2-3 MM ) NODULAR DENSITIES WITH SOME FIBROTIC CHANGES, AND BRONCH CALIECTASIS. AND HE DOES NOT HAVE ANY SIGNIFICANT LYMPHADENOPATHY HE REMAINS BASICALLY ASYMPTOMATIC , EXCEPT FOR MILD INTERMITTENT COUGH WITH SOME MODERATE AMOUNT OF MUCUS. HE HAS NEVER REQUIRED ANY BRONCHODILATOR INHALERS. HE DENIES SHORTNESS OF BREATH ON EXERTION. TODAY HE IS ALSO COMPLAINING OF INCREASED SNORING AT NIGHT ( PER HIS ) TENDENCY TO HAVE 1 OR 2 NAPS DURING THE DAYTIME, AND SOME FORGETFULNESS . HE HAS SEEN NEUROLOGIST WHO HAS RECOMMENDED THAT HE SHOULD HAVE SLEEP STUDY. ERI DOES HAVE PAST HISTORY OF SLEEP APNEA AND HE DID TRY TO USE CPAP FOR A FEW YEARS BUT GAVE UP BECAUSE HE COULD NOT TOLERATE THE MASK. THEN HE DID LOSE WEIGHT AND STARTED SLEEPING BETTER. [facility] Medical History (Updated 08/14/25 @ 15:06 by Alonzo Chambers MD) Somnolence Pulmonary nodule seen on imaging study HAL (obstructive sleep apnea) Dyspnea on exertion Pulmonary sarcoidosis Gallstone Hypertension Sarcoidosis Colon polyp Surgical History Status post laparoscopic cholecystectomy History of laparoscopic cholecystectomy (~2020) History of hip replacement Social History Household Members: Spouse Housing: House Do you presently have visiting nurse or other home services: No Patient Tobacco Use Status: Never used Tobacco Second Hand Smoke Exposure: No service: No Current occupational status: retired Review of Systems Const All systems reviewed & are unremarkable except as noted in HPI and below Eyes Reports no additional complaints ENT Reports no additional complaints Card Denies chest pain, Denies syncope, Denies irregular heart rhythm and Reports dyspnea on exertion Resp Reports as per HPI and Reports dyspnea on exertion GI Reports no additional complaints Reports no additional complaints Musc Reports arthralgias (Knees and back) Skin/Breast Reports system reviewed and no additional complaints, except as documented Neuro Reports no additional complaints and Denies syncope Psych Reports no additional complaints Endo Reports other (Being treated for hypothyroidism) Santana/Lymph Reports no additional complaints Physical Exam Vital Signs: Last Vital Signs Pulse 55 08/14/25 14:01 BP 108/70 08/14/25 14:01 Pulse Ox 98 08/14/25 14:01 Oxygen Delivery Method Room Air 08/14/25 14:01 BMI result Body Mass Index 31.4 Const General: healthy appearing (Except for being overweight), comfortable, no acute distress, alert and awake Orientation/consciousness: patient oriented x3 HEENT Head: Yes normal to inspection General nose exam: No nasal polyps present and No nasal discharge present Face and sinus: Yes sinuses nontender Mouth: oropharynx normal Teeth and gingiva: other (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) Throat: Yes posterior oropharynx normal Eyes General: appearance normal, both eyes and all related structures Neck Neck: Yes normal visual inspection, Yes no lymphadenopathy, Yes trachea midline and Yes no JVD Thyroid: Thyroid normal Chest Chest palpation & inspection: normal inspection of the chest, normal palpation of entire chest wall and no tenderness Resp Effort & Inspection: normal respiratory effort Auscultation: clear to auscultation bilaterally, no crackles and no wheezes Cardio Palpation: normal PMI Rate: regular rate Rhythm: regular rhythm Heart sounds: no gallops and no murmurs Peripheral pulses: Peripheral pulses 2+ throughout GI Palpation (GI): Soft to palpation, nontender, No hepatosplenomegaly present and no masses Auscultation: normal bowel sounds Back/Spine/Pelvis Thoracic/Lumbar Spine: thoracic and lumbar spine normal to inspection Skin General skin exam: no rashes or lesions noted Neuro General: patient oriented x3 and no focal motor deficits Cranial nerves: Yes CN's II-XII intact bilaterally Extrem General: Yes normal to inspection, Yes no clubbing, cyanosis or edema and Yes no calf tenderness Psych Appearance: grossly normal and well kempt Speech and movement: Normal speech and movement present Results Reviewed Results Reviewed: HE HAD CT SCAN OF THE CHEST IN JULY 2024 WHICH SHOWED NO SIGNIFICANT CHANGE FROM PREVIOUS CAT SCAN. AND HE HAD SCATTERED 2-3 MM PULMONARY NODULES THROUGHOUT BOTH LUNGS Assessment & Plan Assessment & Plan (1) Pulmonary sarcoidosis: Comment: History of pulmonary sarcoidosis, initially diagnosed about 16 years ago. In the past has been treated with systemic steroids for 4-5 years. According to him it has been fairly stable, and he has been on no treatment for the last 5-6 years. Recently he has experienced some dyspnea on exertion, The CT scan of the chest, does not show any significant mediastinal or hilar lymphadenopathy. At this point I do not think he has any active pulmonary sarcoidosis. Code(s): D86.0 - Sarcoidosis of lung Category: Medical Plan: DISCUSSED THE FINDINGS OF CAT SCAN WITH HIM. TOLD HIM THAT HE DOES NOT NEED ANY ACTIVE TREATMENT AT THIS TIME. HE SHOULD TRY TO DO DEEP BREATHING EXERCISES 2 OR 3 TIMES A DAY . (2) Pulmonary nodule seen on imaging study: Comment: Small RUL pulmonary nodules 2-3 mm, Rt. paratracheal CT scan has been repeated for 6 months interval follow-up. AND THERE HAS BEEN NO SIGNIFICANT CHANGE . Code(s): R91.1 - Solitary pulmonary nodule Category: Medical Plan: Will continue to monitor his symptoms and also check by repeat CT scan every few years (3) AHL (obstructive sleep apnea): Comment: HE HAS PREVIOUS HISTORY OF OBSTRUCTIVE SLEEP APNEA AND WAS TREATED WITH CPAP FOR 2 OR 3 YEARS. THIS HAPPENED WHEN HE HAD PUT ON WEIGHT DUE TO TAKING ORAL STEROIDS. MORE THAN 6 YEARS AGO WHEN HE QUIT TAKING PREDNISONE HE LOST WEIGHT AND HIS SYMPTOMS RESOLVED SO HE GAVE UP ON USING THE CPAP. Now he has increased daytime sleepiness. He does have snoring. And he has tendency to take 1 or 2 naps during the daytime. Also he has mild dementia, The neurologist has suggested that he should have a sleep study. Code(s): G47.33 - Obstructive sleep apnea (adult) (pediatric) Category: Medical Plan: Discussed with him and I think we will proceed with having a home-based sleep study. Ordered at [facility] . will check him after the sleep study Orders: Orders RT home sleep study Today D86.0 - Sarcoidosis of lung, G47.33 - Obstructive sleep apnea (adult) (pediatric), R40.0 - Somnolence Coding Level of Care Code Est Pt Level 3 (96745) Diagnoses Pulmonary sarcoidosis D86.0 Pulmonary nodule seen on imaging study R91.1 HAL (obstructive sleep apnea) G47.33
[2025-08-14 14:01] VITALS: BP 108/70; PULSE 55; O2SAT 98; BMI 31.4
--- OUTSIDE RECORDS SUMMARY | 2025-08-14 18:00 | XMS_ITS | Encounter Summary ---
Author Organization [facility] Address [address] [place] [address] Phone Care Team Providers Care Heat Welder Plastics Name Role Phone Daryn Oseguera MD Primary Care Provider [phone] Megha Aguayo Primary Care Provider [phone] Ramona Nascimento NP Primary Care P rovider Encounter Details Date Type Department Care Team ([facility] st Contact Info) Description 12/11/2022 Procedure Pass [facility] [address] [place] [address] Social History Tobacco Use Types Packs/Day Years Used Date Smoking Tobacco: Never Smokeless Tobacco: Never Alcohol Use Standard Drinks/Week Comments Yes 0 (1 standard drink = 0.6 oz pur e alcohol) 2-3 a month at most Sex and Gender Information Value Date Recorded Sex Assigned at Male 07/17/2022 9:53 AM EST Legal Sex Male 7:20 PM EST Gender Identity Male 07/17/2022 9:53 AM EST Sexual Orientation Straight 07/17/2022 9: 53 AM EST documented as of this encounter Plan of Treatment Not on file documented as of this encounter Visit Diagnoses Not on filedocumented in this encounter Care Teams Heat Welder [employer] Relationship Specialty Start Date End Date Daryn Oseguera MD [address] [place] [id number] PCP - General 02/27/14 05/02/24 Megha Aguayo PA [address] [place] [address] [address] [place] [address] PCP - General Physician Director Of Securities And Real Estate 05/03/24 03/27/25 Ramona Nascimento NP [address] [place] [address] [address] [place] [address] PCP - General Nurse Practitioner 03/28/25 documented as of this encounter Additional Source Comments The information contained in this document represents components of the legal health record. It is not the complete legal health record.[facility]
--- OUTSIDE RECORDS SUMMARY | 2025-08-14 18:00 | XMS_ITS | Encounter Summary ---
Author Organization [facility] Address [address] [place] [address] Phone Care Team Providers Care Salon Designer Name Role Phone Daryn Oseguera MD Primary Care Provider [phone] Megha Aguayo Primary Care Provider [phone] Ramona Nascimento NP Primary Care P rovider Encounter Details Date Type Department Care Team ([facility] st Contact Info) Description 07/22/2022 Procedure Pass [facility] [address] [place] [address] Social History Tobacco Use Types Packs/Day Years [...] on filedocumented in this encounter Care Teams Salon Designer Relationship Specialty Start Date End Date Daryn Oseguera MD [address] [place] [id number] PCP - General 02/27/14 05/02/24 Megha Aguayo PA [address] [place] [address] [address] [place] [address] PCP - General Physician Collar Runner 05/03/24 03/27/25 Ramona Nascimento NP [address] [place] [address] [address] [place] [address] PCP - General Nurse Practitioner 03/28/25 documented as of this encounter Additional Source Comments The information contained in this document represents components of the legal health record. It is not the complete legal health record.[facility]
--- OUTSIDE RECORDS SUMMARY | 2025-08-14 18:00 | XMS_ITS | Clinical Summary ---
Author Organization [facility] Address [address] [place] [phone] Phone Care Team Providers Care Inking Machine Tender Name Role Phone Ramona Nascimento NP Primary Care P rovider Allergies Active Allergy Reactions Criticality Noted Date Comments Inhaled Anesthetics (Halogen Based) Nausea And Vomiting Low 08/08/2015 Methotrexate Cough Low 08/08/2015 Medications celecoxib (CELEBREX) 200 MG capsule Take 200 mg by mouth daily. Active levothyroxine (SYNTHROID, LEVOTHROID) 50 MCG tablet Take 50 mcg by mouth every morning. Active amLODIPine (NORVASC) 5 MG tablet Take 5 mg by mouth daily. Active tamsulosin (FLOMAX) 0.4 mg Cap Take 0.4 mg by mouth daily. Two daily. Active traZODone (DESYREL) 50 MG tablet 3 Active cholecalciferol (VITAMIN D3) 25 MCG (1,000 unit) tablet Take 1,000 Units by mouth daily. Active amoxicillin (AMOXIL) 500 MG capsule TAKE 4 CAPSULES BY MOUTH 1 HOUR PRIOR TO DENTAL APPOINTMENT 3 Active betamethasone dipropionate 0.05 % cream APPLY TOPICALLY TO THE AFFECTED AREA TWICE DAILY NEEDED 3 Active finasteride (PROSCAR) 5 mg tablet Take 5 mg by mouth daily. 5 Active SYNTHROID 75 mcg tablet Take 75 mcg by mouth daily. 5 Active levomefolate-B2- B6-B12 (CEREFOLIN) 6-5-50-1 mg Tab Take by mouth. Active Active Problems Problem Noted Date Diagnosed Date BPH associated with nocturia 05/23/2025 Left hip pain 06/22/2023 Varicose veins of lower extremity 02/26/2023 Alopecia 10/13/2022 02/26/2023 Essential hypertension 10/13/2022 3 Hypothyroidism 10/13/2022 02/26/2023 Nocturia 10/13/2022 02/26/2023 Osteoarthritis 10/13/2022 02/26/2023 History of total right hip replacement 2 02/26/2023 Sarcoidosis 03/17/2022 02/26/2023 Encounters Date Type Department Care Team Description 05/23/2025 2:40 PM EDT Office Visit [facility] [place] [id number] Dunia Miller, YULI Ceruminosis, bilateral (Primary Dx) from Last 3 Months Immunizations Immunization Administration Dates Next Due Influenza, Unspecified Formulation 07/24/2010 Pneumococcal polysaccharide PPSV23 08/17/2012 Social History Tobacco Use Types Packs/Day Years Used Date Smoking Tobacco: Never Smokeless Tobacco: Never Tobacco Cessation:Counseling Given: Not Answered Alcohol Use Standard Drinks/Week Comments Yes 1 (1 standard drink = 0.6 oz pur e alcohol) Maybe 1 a week many weeks 0 Home Health Assessment: Transportation Answer Date Recorded Lack of Transportation (Medical) No 04/02/2023 Lack of Transportation (Non-Medical) No 04/02/2023 Patient Unable or Declines to Respond No 04/02/2023 Education Answer Date Recorded Are you interested in more education? Not on marysol e 12/24/2022 Are you concerned about learning? Not on file 12/24/2022 No 12/24/2022 No 12/24/2022 Digital Access Answer Date Recorded No 01/19/2023 No 01/19/2023 Reliable internet access at home? Not on file 01/19/2023 Device with a working camera? Not on file Intimate Partner Violence Answer Date R ecorded Are you denied basic needs s uch as food, clothing, or medical care? No 03/11/2023 In the past 12 months have y ou been in a relationship with a person who hurts, threatens, or tries to control you? No 03/11/2023 Are you denied basic needs s uch as food, clothing, or medical care? No 03/11/2023 In the past 12 months have y ou been in a relationship with a person who hurts, threatens, or tries to control you? No 03/11/2023 Sex and Gender Information Value Date Recorded Sex Assigned at Male 07/17/2022 9:53 AM EST Legal Sex Male 7:20 PM EST Gender Identity Male 07/17/2022 9:53 AM EST Sexual Orientation Straight 07/17/2022 9: 53 AM EST Last Filed Vital Signs Vital Sign Reading Time Taken Comments Blood Pressure 107/68 05/23/2025 2:57 PM EDT Pulse 68 05/23/2025 2:57 PM EDT Temperature 36.4 C (97.6 F) 05/23/2025 2:57 PM EDT Respiratory Rate 18 05/23/2025 2:57 PM EDT Oxygen Saturation 100% 05/23/2025 2:57 PM EDT Inhaled Oxygen Concentration - - Weight 111.1 kg (245 lb) 02/26/2023 12:10 PM EDT Height 185.4 cm (6' 1 ) 02/26/2023 12:10 PM EDT Body Mass Index 32.32 02/26/2023 12:10 PM EDT Plan of Treatment Health Maintenance Due Date Last Done Comments Adult Td,Tdap Booster 1957 LIPID PANEL 1957 TSH LEVEL 1957 DEPRESSION SCREENING 1969 HEPATITIS C SCREENING 1975 SCREENING FOR DIABETES 1992 COLOGUARD 2002 COLONOSCOPY 2002 COLORECTAL CANCER SCREENING 2002 FIT TEST 2002 FOBT 2002 SIGMOIDOSCOPY 2002 VIRTUAL COLONOSCOPY 2002 ZOSTER VACCINES (1 of 2) 2007 PNEUMOCOCCAL VACCINES (50+ y ears) (2 of 2 - PCV) 08/17/2013 08/17/2012 INFLUENZA VACCINE (#1) 2025 07/24/2010 COVID-19 VACCINE ( - 2024-2 6 season) 2025 BLOOD PRESSURE 11/20/2025 05/23/2025 RSV VACCINE (1 - 1-dose 75+ series) 2032 SMOKING STATUS SCREENING (On ce After 26 Yrs) Completed 05/23/2025 HEPATITIS A VACCINES Aged Out No long er eligible based on patient's age to complete this topic HIB VACCINES Aged Out No longer eligi ble based on patient's age to complete this topic MENINGOCOCCAL VACCINES (ACWY) Aged Out No longer eligible based on patient's age to complete this topic MENINGOCOCCAL VACCINES (B) Aged Out N o longer eligible based on patient's age to complete this topic Medical Devices Implanted Type Area Standpipe Tender Device Identifier Shelf Expiration Date Model / Serial / Lot Screw Bone 30x6.5mm Cortical Acetabular Self Tapping Cable Ready Trauma Trilogy Hip 16a - [id number] Implanted:Qty: 1 on 03/11/2023 by Samuel Moura MD at [facility] Left: Acetabulum [employer] [id number] 1 11/09/2032 [id number] / / [id number] Description:The implant type , laterality (when applicable), size, and expiration date have been visually and verbally confirmed by the Surgeon, Circulating RN and Scrub Personnel. Screw Bone 25x6.5mm Cortical Acetabular Self Tapping Cable Ready Trauma Trilogy Hip 16a - [id number] Implanted:Qty: 1 on 03/11/2023 by Samuel Moura MD at [facility] Left: Acetabulum [employer] [id number] 1 11/23/2032 [id number] / / [id number] Description:The implant type , laterality (when applicable), size, and expiration date have been visually and verbally confirmed by the Surgeon, Circulating RN and Scrub Personnel. Pin Pin Left: Foot Prosthetic Joint Prosthetic Joint Right: Hip Dental Acetabular Shell 54mm Size Jj Continuum Tivanium Trabecular Metal Hemisphere Cluster Hole - [id number] Implanted:Qty: 1 on 03/11/2023 by Samuel Moura MD at [facility] Left: Acetabulum [employer] [id number] 1 12/15/2032 [id number] / / [id number] Description:The implant type , laterality (when applicable), size, and expiration date have been visually and verbally confirmed by the Surgeon, Circulating RN and Scrub Personnel. Acetabular Liner 72h97ip Size Jj Vavacit E Polyethylene Vitamin Highly Crosslinked Neutral - [id number] Implanted:Qty: 1 on 03/11/2023 by Samuel Moura MD at [facility] Left: Acetabulum [employer] [id number] 1 01/08/2026 [id number] / / [id number] Description:The implant type , laterality (when applicable), size, and expiration date have been visually and verbally confirmed by the Surgeon, Circulating RN and Scrub Personnel. Hip Stem [id number] Taperloc Pps Coated Complete Reduced High Offset Type 1 - [id number] Implanted:Qty: 1 on 03/11/2023 by Samuel Moura MD at [facility] Left: Acetabulum [employer] [id number] 06/14/2032 [id number] / / [id number] Description:The implant type , laterality (when applicable), size, and expiration date have been visually and verbally confirmed by the Surgeon, Circulating RN and Scrub Personnel. Femoral Head 36mm Std Type 1 Taper Hip Biolox Delta Modular Ceramic - [id number] Implanted:Qty: 1 on 03/11/2023 by Samuel Moura MD at [facility] Left: Acetabulum [employer] [id number] 08/21/2032 [id number] / / [id number] Description:The implant type , laterality (when applicable), size, and expiration date have been visually and verbally confirmed by the Surgeon, Circulating RN and Scrub Personnel. Procedures Procedure Name Priority Date/Time Associated Diagnosis Comments EAR CERUMEN REMOVAL Routine 05/23/2025 3 :19 PM EDT Ceruminosis, bilateral from Last 3 Months Results * EAR CERUMEN REMOVAL (05/23/2025 3:19 PM EDT) Other Narrative Dunia Miller CNP - 05/23/2025 3:19 PM EDT ZhengrogelioDunia JordiYULI 05/23/2025 3:21 PM Cerumen Removal Date/Time: 05/23/2025 3:19 PM Visualization: Otoscopy Cerumen in: Bilateral ears Removed with: Irrigation Patient tolerated procedure well: Yes [place] Protocol: Verbal consent obtained: Yes Written consent obtained: No Time out: Immediately prior to the procedure, a time out was called to verify that there is a signed consent form and that the correct patient, planned procedure, site and side are consistent with documentation and that necessary equipment and/or blood products are available prior to the start of the case. Dunia Miller CNP PROCEDURE/MINOR SURGICAL OR DERABLES Final Result from Last 3 Months Insurance [place] P[place] BLUE REPLACEMENT MEDICARE PART A & B [facility] MEDICARE PPO BLUE REPLACEMENT MEDICARE PART A & B [facility] MEDICARE PPO BLUE REPLACEMENT MEDICARE PART A & [place] [address] [place] [address] MEDICARE PPO BLUE REPLACEMENT MEDICARE PART A & B [facility] MEDICARE PPO BLUE REPLACEMENT MEDICARE PART A & B [place] BLUE REPLAC[place] MEDICARE PART A & B Care Teams Inking Machine Tender Relationship Specialty Start Date End Date Ramona Nascimento NP [address] [place] [address] [address] [place] [address] PCP - General Nurse Practitioner 03/28/25 Additional Source Comments The information contained in this document represents components of the legal health record. It is not the complete legal health record.[facility]
--- OUTSIDE RECORDS SUMMARY | 2025-08-14 18:00 | XMS_ITS | Encounter Summary ---
Author Organization [facility] Address [address] [place] [address] Phone Care Team Providers Care Medical Legal Investigator Name Role Phone Daryn Oseguera MD Primary Care Provider [phone] Megha Aguayo Primary Care Provider [phone] Ramona Nascimento NP Primary Care P rovider Encounter Details Date Type Department Care Team ([facility] st Contact Info) Description 12/08/2022 Procedure Pass [facility] [address] [place] [address] Social History Tobacco Use Types Packs/Day Years [...] on filedocumented in this encounter Care Teams Medical Legal Investigator Relationship Specialty Start Date End Date Daryn Oseguera MD [address] [place] [address] PCP - General 02/27/14 05/02/24 Megha Aguayo PA [address] [place] [address] [address] [place] [address] PCP - General Physician Monument Mason 05/03/24 03/27/25 Ramona Nascimento NP [address] [place] [address] [address] [place] [address] PCP - General Nurse Practitioner 03/28/25 documented as of this encounter Additional Source Comments The information contained in this document represents components of the legal health record. It is not the complete legal health record.[facility]
--- OUTSIDE RECORDS SUMMARY | 2025-08-14 18:00 | XMS_ITS | Encounter Summary ---
Author Organization [facility] Address [address] [place] [address] Phone Care Team Providers Care Cost Estimator Name Role Phone Daryn Oseguera MD Primary Care Provider [phone] Megha Aguayo Primary Care Provider [phone] Ramona Nascimento NP Primary Care P rovider Encounter Details Date Type Department Care Team (Late st Contact Info) Description 03/11/2023 Procedure Pass [facility] PERIOPERATIVE DEPT [address] [place] [address] Social History Tobacco Use Types Packs/Day Years Used Date Smoking Tobacco: Never Smokeless Tobacco: Never Alcohol Use Standard Drinks/Week Comments Yes 1 (1 standard drink = 0.6 oz pur e alcohol) Maybe 1 a week many weeks 0 Education Answer Date Recorded Are you interested [...] on filedocumented in this encounter Care Teams Cost Estimator Relationship Specialty Start Date End Date Daryn Oseguera MD [address] [place] [address] PCP - General 02/27/14 05/02/24 Megha Aguayo PA [address] [place] [address] [address] [place] [address] PCP - General Physician Shipping Track Supervisor 05/03/24 03/27/25 Ramona Nascimento NP [address] [place] [address] [address] [place] [address] PCP - General Nurse Practitioner 03/28/25 documented as of this encounter Additional Source Comments The information contained in this document represents components of the legal health record. It is not the complete legal health record.[facility]
--- OUTSIDE RECORDS SUMMARY | 2025-08-14 18:00 | XMS_ITS | Encounter Summary ---
Author Organization [facility] Address [address] [place] [address] [address] [place] [address] Phone Care Team Providers Care Barrel Rib Matting Machine Operator Name Role Phone Daryn Oseguera MD Primary Care Provider [phone] Megha Aguayo Primary Care Provider [phone] Ramona Nascimento NP Primary Care P rovider Encounter Details Date Type Department Care Team (Late st Contact Info) Description 02/23/2023 Ancillary Orders [facility] [address] [facility], [address] [place] [address] Ching Wang, RESIDENT ENGINEER [address] [address] [email or web address] Left hip pain Social History Tobacco Use Types Packs/Day Years Used Date Smoking Tobacco: Never Smokeless Tobacco: Never Alcohol Use Standard Drinks/Week Comments Yes 0 (1 standard drink = 0.6 oz pur e alcohol) 2-3 a month at most Education Answer Date Recorded Are you interested in more education? Not on marysol e 12/24/2022 Are you concerned about learning? Not on file 12/24/2022 No 12/24/2022 No 12/24/2022 Digital Access Answer Date Recorded No 01/19/2023 No 01/19/2023 Reliable internet access at home? Not on file 01/19/2023 Device with a working camera? Not on file Sex and Gender Information Value Date Recorded Sex Assigned at Male 07/17/2022 9:53 AM EST Legal Sex Male 7:20 PM EST Gender Identity Male 07/17/2022 9:53 AM EST Sexual Orientation Straight 07/17/2022 9: 53 AM EST documented as of this encounter Plan of Treatment Not on file documented as of this encounter Results * XR HIPS 2+ VW EA BILAT PLUS PELVIS (02/23/2023 7:25 AM EDT) Anatomical Region Laterality Modality Hip, Pelvis Computed Radiogr aphy 02/23/2023 8:18 AM EDT Impressions 02/23/2023 8:22 AM EDT Right total hip arthroplasty. Narrative 02/23/2023 8:22 AM EDT XR HIPS 2+ VW EA BILAT PLUS PELVIS COMPARISON: XR HIPS 1 VW EA BILAT PLUS PELVIS FINDINGS: Pelvis: No displaced fracture. Intact sacroiliac joints and pubic symphysis. Left Hip: No displaced fracture. Normal alignment. Moderate degenerative changes. Right Hip: Total hip arthroplasty. Hardware is intact and in anatomic position. No periprosthetic lucency or asymmetric liner wear. No periprosthetic fracture. Heterotopic ossification about the right hip. Procedure Note Abigail Bejarano MD - 02/23/2023 XR HIPS 2+ VW EA BILAT PLUS PELVIS COMPARISON: XR HIPS 1 VW EA BILAT PLUS PELVIS FINDINGS: Pelvis: No displaced fracture. Intact sacroiliac joints and pubicsymphysis. Left Hip: No displaced fracture. Normal alignment. Moderate degenerativechanges. Right Hip: Total hip arthroplasty. Hardware is intact and in anatomicposition. No periprosthetic lucency or asymmetric liner wear. Noperiprosthetic fracture. Heterotopic ossification about the right hip. IMPRESSION: Right total hip arthroplasty. Ching Wang RESIDENT ENGINEER IMG XR PELVIS Final Result documented in this encounter Visit Diagnoses Diagnosis Right hip pain Pain in joint, pelvic region and thigh Left hip pain Pain in joint, pelvic region and thigh Left hip pain Pain in joint, pelvic region and thigh documented in this encounter Care Teams Barrel Rib Matting Machine Operator Relationship Specialty Start Date End Date Daryn Oseguera MD [address] [place] [address] PCP - General 02/27/14 05/02/24 Megha Aguayo PA [address] [place] [address] [address] [place] [address] PCP - General Physician Specialty Finishing Utility Person 05/03/24 03/27/25 Ramona Nascimento NP [address] [place] [address] [address] [place] [address] PCP - General Nurse Practitioner 03/28/25 documented as of this encounter Additional Source Comments The information contained in this document represents components of the legal health record. It is not the complete legal health record.[facility]
--- OUTSIDE RECORDS SUMMARY | 2025-08-14 18:00 | XMS_ITS | Encounter Summary ---
Author Organization [facility] Address [address] [place] [address] Phone Care Team Providers Care Streetcar Repairer Helper Name Role Phone Daryn Oseguera MD Primary Care Provider [phone] Megha Aguayo Primary Care Provider [phone] Ramona Nascimento NP Primary Care P rovider Encounter Details Date Type Department Care Team ([facility] st Contact Info) Description 07/20/2022 Procedure Pass [facility] Radiology [address] [place] [address] Social History Tobacco Use Types Packs/Day Years [...] on filedocumented in this encounter Care Teams Streetcar Repairer Helper Relationship Specialty Start Date End Date Daryn Oseguera MD [address] [place] [address] PCP - General 02/27/14 05/02/24 Megha Aguayo PA [address] [place] [address] [address] [place] [address] PCP - General Physician Clerical Administrative Assistant 05/03/24 03/27/25 Ramona Nascimento NP [address] [place] [address] [address] [place] [address] PCP - General Nurse Practitioner 03/28/25 documented as of this encounter Additional Source Comments The information contained in this document represents components of the legal health record. It is not the complete legal health record.[facility]
--- OUTSIDE RECORDS SUMMARY | 2025-08-14 18:00 | XMS_ITS | Encounter Summary ---
Author Organization [facility] Address [address] [place] [address] Phone Care Team Providers Care Yard Assistant Name Role Phone Daryn Oseguera MD Primary Care Provider [phone] Megha Aguayo Primary Care Provider [phone] Ramona Nascimento NP Primary Care P rovider Encounter Details Date Type Department Care Team (Late st Contact Info) Description 02/23/2023 Transcribe Orders [facility] Lab Main [address] [place] [address] Samuel Moura MD [address] [address] [email or web address] Social History Tobacco Use Types Packs/Day Years [...] on filedocumented in this encounter Care Teams Yard Assistant Relationship Specialty Start Date End Date Daryn Oseguera MD [address] [place] [address] PCP - General 02/27/14 05/02/24 Megha Aguayo PA [address] [place] [address] [place] [address] PCP - General Physician Securities Attorney 05/03/24 03/27/25 Ramona Nascimento NP [address] [place] [address] [place] [address] PCP - General Nurse Practitioner 03/28/25 documented as of this encounter Additional Source Comments The information contained in this document represents components of the legal health record. It is not the complete legal health record.[facility]
--- OUTSIDE RECORDS SUMMARY | 2025-08-14 18:00 | XMS_ITS | Encounter Summary ---
Author Organization [facility] Address [address] [place] [address] [address] [place] [address] Phone Care Team Providers Care Surgery Consultant Name Role Phone Daryn Oseguera MD Primary Care Provider [phone] Megha Aguayo Primary Care Provider [phone] Ramona Nascimento NP Primary Care P rovider Encounter Details Date Type Department Care Team (Late st Contact Info) Description 12/07/2022 Telephone [facility] Orthopaedic Surgery Arthroplasty Service [address] [facility], 3rd Floor, [address] [place] [address] Samuel Moura MD [address] [address] [email or web address] Social History Tobacco Use Types Packs/Day Years [...] on filedocumented in this encounter Care Teams Surgery Consultant Relationship Specialty Start Date End Date Daryn Oseguera MD [address] [place] [address] PCP - General 02/27/14 05/02/24 Megha Aguayo PA [address] [place] [address] [address] [place] [address] PCP - General Physician Dish Stacker 05/03/24 03/27/25 Ramona Nascimento NP [address] [place] [address] [address] [place] [address] PCP - General Nurse Practitioner 03/28/25 documented as of this encounter Additional Source Comments The information contained in this document represents components of the legal health record. It is not the complete legal health record.[facility]
--- OUTSIDE RECORDS SUMMARY | 2025-08-14 18:00 | XMS_ITS | Encounter Summary ---
Author Organization [facility] Address [address] [place] [address] [address] [place] [address] Phone Care Team Providers Care Director Of Early Childhood Education Name Role Phone Daryn Oseguera MD Primary Care Provider [phone] Megha Aguayo Primary Care Provider [phone] Ramona Nascimento NP Primary Care P rovider Encounter Details Date Type Department Care Team (Late st Contact Info) Description 03/14/2024 Ancillary Orders [facility] [address] [facility], [address] [place] [address] Karolyn Wilks, YULI [address] [address] [email or web address] Aftercare following hip joint replacement surgery, unspecified laterality (Primary Dx) Social History Tobacco Use Types Packs/Day Years [...] HIPS 2+ VW EA BILAT PLUS PELVIS (03/14/2024 10:57 AM EDT) Anatomical Region Laterality Modality Hip, Pelvis Computed Radiogr aphy 03/14/2024 11:1 1 AM EDT Impressions 03/14/2024 12:53 PM EDT Bilateral total hip arthroplasties, no complication. ATTESTATION: I, Dr. Grant Cook as teaching physician, have reviewed the images for this case and if necessary edited the report originally created by Hiro Vidal. Narrative 03/14/2024 12:53 PM EDT XR HIPS 2+ VW EA BILAT PLUS PELVIS Referring clinician's provided indication for this examination in Epic: Hip replacement, asymptomatic, follow up COMPARISON: XR HIP 2 VW LEFT PLUS PELVIS ; XR HIP 2 VW LEFT PLUS PELVIS FINDINGS: Pelvis: Degenerative changes of the pubic symphysis. Left Hip: Total hip arthroplasty. Hardware is intact and in anatomic position. No periprosthetic lucency or asymmetric liner wear. No periprosthetic fracture. Right Hip: Total hip arthroplasty. Hardware is intact and in anatomic position. No periprosthetic lucency or asymmetric liner wear. No periprosthetic fracture. Unchanged heterotopic ossification about both hips, right greater than left. Procedure Note Grant Cook MD - 03/14/2024 XR HIPS 2+ VW EA BILAT PLUS PELVIS Referring clinician's provided indication for this examination in Epic:Hip replacement, asymptomatic, follow up COMPARISON: XR HIP 2 VW LEFT PLUS PELVIS ; XR HIP 2 VW LEFTPLUS PELVIS FINDINGS: Pelvis: Degenerative changes of the pubic symphysis. Left Hip: Total hip arthroplasty. Hardware is intact and in anatomicposition. No periprosthetic lucency or asymmetric liner wear. Noperiprosthetic fracture. Right Hip: Total hip arthroplasty. Hardware is intact and in anatomicposition. No periprosthetic lucency or asymmetric liner wear. Noperiprosthetic fracture. Unchanged heterotopic ossification about bothhips, right greater than left. IMPRESSION: Bilateral total hip arthroplasties, no complication. ATTESTATION: I, Dr. Grant Cook as teaching physician, have reviewed theimages for this case and if necessary edited the report originally createdby Hiro Vidal. Karolyn Wilks [facility] IMG XR PELVIS Fi nal Result documented in this encounter Visit Diagnoses Diagnosis Aftercare following hip joint replacement surgery, unspecified laterality Aftercare following hip joint replacement surgery, unspecified laterality- Primary documented in this encounter Care Teams Director Of Early Childhood Education Relationship Specialty Start Date End Date Daryn Oseguera MD [address] [place] [id number] PCP - General 02/27/14 05/02/24 Megha Aguayo PA [address] [place] [address] [place] [phone] PCP - General Physician Healthcare Liaison 05/03/24 03/27/25 Ramona Nascimento NP [address] [place] [address] [place] [address] PCP - General Nurse Practitioner 03/28/25 documented as of this encounter Additional Source Comments The information contained in this document represents components of the legal health record. It is not the complete legal health record.[facility]
== END 2025-08-14 14:48 | disposition home or self-care (01) ==
LOC: HO.HPS 13:49
PROVIDERS: PCP Physician Assistant; Visit Provider Internal Medicine
DX: D86.0 Sarcoidosis of lung (principal); R91.1 Solitary pulmonary nodule; G47.33 Obstructive sleep apnea (adult) (pediatric)
CPT/HCPCS: 99213

== ENCOUNTER → 2025-08-14 13:48 | Outpatient (BNVA) | payer MEDICARE, SELFPAY | PROVIDERS: PCP Physician Assistant; Visit Provider Internal Medicine | DX: D86.0 Sarcoidosis of lung (principal); G47.33 Obstructive sleep apnea (adult) (pediatric); R91.1 Solitary pulmonary nodule | CPT/HCPCS: 99212 ==